=== PATIENT | female | born 1975 | race Caucasian/White ===

== ENCOUNTER 2020-09-01 17:47 | Emergency (ER) | payer OTHER, SELFPAY ==
--- NOTE | ~2020-09-01 | XR_ITS ---
XR chest 2V DATE: 09/01/2020 18:30 INDICATION: Shortness of breath, anxiety. Smoker. TECHNIQUE: AP and lateral views in wheelchair COMPARISON: None FINDINGS: Normal heart size. No hilar or mediastinal enlargement. There is minimal aortic unfolding. The lungs are mildly hyperinflated but clear of infiltrate or consolidation. No pleural effusion or p ulmonary vascular congestion or pneumothorax. Included skeletal structures are unremarkable. IMPRESSION: Mild bilateral hyperinflation; otherwise no active cardiac pulmonary disease Reviewed, dictated and finalized at location A. IMPRESSION: Mild bilateral hyperinflation; otherwise no active cardiac pulmonar y disease
--- NOTE | 2020-09-01 18:09 | ECG_ITS ---
Measurements Intervals [place] Rate: 82 P: 59 [place]: 118 QRS: 53 QRSD: 94 T: 141 QT: 397 QTc: 465 Interpretive Statements SINUS RHYTHM WITH SHORT [place] INTERVAL LEFT ATRIAL ENLARGEMENT ST-T WAVE ABNORMALITY IN ANTEROLATERAL LEADS- CONSIDER ISCHEMIA BASELINE ARTIFACT- I, V1-V2 ABNORMAL ECG Electronically Signed On 09-01-2020 19:39:31 CDT by Sabas Savage D.O.
[2020-09-01 18:10] VITALS: BP 192/96; PULSE 88; RESP 20; TEMP 36.4; O2SAT 100
[2020-09-01 18:24] LABS: Basophils Percent Auto 0.6 % (0.2-1.2); Eosinophils Absolute Auto 0.1 K/mm3 (0-0.3); Eosinophils Percent Auto 1.7 % (0-4.4); Hematocrit 48.3 % (37.0-47.0); Hemoglobin 16.9 g/dL (12.0-15.0); Immature Granulocyte Absolute 0.01 K/mm3 (0.00-0.031); Immature Granulocyte Percent A 0.2 % (0-0.5); Lymphocytes Absolute Auto 1.16 K/mm3 (0.9-3.2); Lymphocytes Percent Auto 24.2 % (18.3-44.2); Mean Corpuscular Hemoglobin 31.2 pg (26-34); Mean Corpuscular Volume 89.3 fl (80-100); Mean Platelet Volume 8.7 fl (7.4-10.4); Monocytes Absolute Auto 0.7 K/mm3 (0.1-0.6); Neutrophils Absolute Auto 2.8 K/mm3 (1.3-6.7); Neutrophils Percent Auto 58.3 % (45.5-73.1); Platelet Count Result 210 k/mm3 (150-375); Red Blood Count 5.41 M/mm3 (4.2-5.4); Red Cell Distribution Width 12.1 % (11.5-14.5); White Blood Count 4.8 K/mm3 (4.5-10.0)
[2020-09-01 18:33] LABS: Alanine Aminotransferase 35 U/L (4-35); Albumin Level 4.6 g/dL (3.5-5.1); Alkaline Phosphatase 172 U/L (38-126); Anion Gap 15 mmol/L (8-16); Aspartate Amino Transferase 70 U/L (14-36); Bilirubin,Total 0.7 mg/dL (0.2-1.3); Blood Urea Nitrogen 3 mg/dL (7-17); Calcium 9.8 mg/dL (8.4-10.2); Carbon Dioxide 21 mmol/L (22-30); Chloride 98 mmol/L (98-107); Estimated CRCL calculation 100 ml/min; Estimated Glomerular Filt Rate > 60; Ethanol 217 mg/dL (<10); Glucose 95 mg/dL (65-105); Potassium 3.5 mmol/L (3.4-5.0); Sodium 134 mmol/L (137-145)
--- NOTE | 2020-09-01 19:30 | PC.NURSE ---
pt to intake and verbalized feeling a ton better i am going to go home now.
== END 2020-09-01 19:30 | disposition left against medical advice (07) ==
LOC: ANHED 19:29
PROVIDERS: Emergency Provider Family Medicine
DX: R06.02 Shortness of breath (principal)
CPT/HCPCS: 36415; 71046; 80053; 80307; 85025; 93005; 99199

== ENCOUNTER 2020-09-16 17:58 | Inpatient (IN) | payer OTHER, SELFPAY ==
--- NOTE | ~2020-09-16 | XR_ITS ---
EXAMINATION: XR chest 1V portable EXAM DATE: 09/16/2020 19:01 INDICATION: Cough/SOB/ pressure @ center of chest x1 week. TECHNIQUE: Portable AP frontal chest x-ray was obtained. Comparison is made to prior examination from 09/01/2020. FINDINGS: The lungs are clear. There are no pleural effusions. The cardiomediastinal silhouette is within normal limits. There is no pneumothorax suspected. The bones and soft tissues are unremarkab le. IMPRESSION: No acute cardiopulmonary findings. Reviewed, dictated and finalized at location A.
--- NOTE | ~2020-09-16 | CT_ITS ---
EXAMINATION: CT abdomen pelvis wo con DATE: 09/17/2020 11:57 INDICATION: Mid and upper abdominal pain. TECHNIQUE: Computed tomography (CT) of the abdomen and pelvis was performed without intravenous contr ast. Automated exposure control and iterative reconstruction technique were employed. The dose-length product was 647.32 mGy-cm. COMPARISON: None FINDINGS: Lung bases are clear. Heart size is normal. No pericardial or pleural effusion. Diffuse hepatic steat osis. Cholecystectomy clips at the gallbladder fossa. Spleen, pancreas and bilateral adrenal glands a re normal. 4.4 x 2.7 x 4.1 cm gas and fluid-filled duodenal diverticulum located posterior to the hea d of the pancreas and which appears to arise from the second portion of the duodenum. Kidneys and ure ters are normal with no urolithiasis, hydroureteronephrosis or perinephric/ureteral stranding. Bladde r, uterus and bilateral adnexa are unremarkable. Single diverticulum along the sigmoid colon without adjacent inflammatory change to suggest diverticulitis. No bowel obstruction. Normal appendix. No edna e intraperitoneal gas or fluid. No pathologically enlarged abdominal or pelvic lymphadenopathy. Mild lumbar levocurvature with mild spondylosis. Chronic mild anterior wedging at T11 and T12. IMPRESSION: 1. No acute intra-abdominal/pelvic process. 2. Diffuse hepatic steatosis. Reviewed, dictated and finalized at location A.
--- NOTE | ~2020-09-16 | CT_ITS ---
EXAMINATION: CT brain wo con EXAM DATE: 09/16/2020 19:02 INDICATION: hypertensive emergency weakness/dizziness. High BP. TECHNIQUE: Spiral CT of the head was performed without contrast. Axial, coronal and sagittal images were reviewed. The dose-length product (DLP) for this examination was 681.00 mGy-cm. The exposure w as tailored according to patient size, and iterative reconstruction (ASIR) was used as additional dos e reduction technique. There is no prior study for comparison. FINDINGS: There is no acute intraparenchymal hemorrhage. No evidence of intraparenchymal brain mass lesion. No evidence of acute infarction. Please note that initial head CT has limited sensitivity f or small or acute infarctions. There are is mild to moderate periventricular and subcortical hypodens ity, a non-specific finding with differential diagnosis including premature chronic small vessel isch emic disease (especially if the patient has cardiovascular risk factors), migraine headaches, demyeli nating disease such as multiple sclerosis or acute disseminated encephalomyelitis (ADEM), vasculopath y, lyme's disease or reactive astrocytosis (gliosis) secondary to nonspecific etiology. There is mil d prominence of the sulci and ventricles related to cerebral atrophy. There is intracranial carotid arteriosclerosis. There are no extra-axial collections. There is no mass effect or midline shift. The orbits are unremarkable. Soft tissue is unremarkable. The visualized sinuses and mastoid air c ells are well aerated. IMPRESSION: 1. No acute intracranial findings. 2. Mild to moderate nonspecific white matter hypodensity, could be premature microangiopathy but meeta e differential considerations above. Reviewed, dictated and finalized at location A. IMPRESSION: 1. No acute intracranial findings. 2. Mild to moderate nonspecific white matter hypodensity, could be premature m icroangiopathy but some differential considerations above.
[2020-09-16 17:58] VITALS: BP 188/90; PULSE 88; RESP 18; TEMP 36.4; O2SAT 98
--- NOTE | 2020-09-16 18:16 | ECG_ITS ---
Measurements Intervals [place] Rate: 83 P: 72 [place]: 123 QRS: 66 QRSD: 93 T: 81 QT: 449 QTc: 529 Interpretive Statements SINUS RHYTHM POSSIBLE LEFT ATRIAL ENLARGEMENT LEFT VENTRICULAR HYPERTROPHY AND ST-T CHANGE BORDERLINE ST-T WAVE ABNORMALITY- HIGH LATERAL LEADS BASELINE ARTIFACT- I, V3, V5 BORDERLINE ECG Electronically Signed On 09-17-2020 6:17:50 CDT by Sabas Savage D.O.
[2020-09-16] MEDS: LABETALOL HCL INJ 100 MG/20 ML VIAL 10 MG IV PUSH ×2 (18:25→19:08)
[2020-09-16 18:39] LABS: Hematocrit 45.2 % (35.0-49.0); Hemoglobin 15.9 g/dL (12.0-15.0); Mean Corpuscular HGB Conc 35.2 g/dL (32.0-36.0); Mean Corpuscular Hemoglobin 31.5 pg (27.0-31.0); Mean Corpuscular Volume 89.5 fL (78.0-102.0); Mean Platelet Volume 9.2 fl (9.2-11.8); Platelet Count Result 161 K/mm3 (150-420); Red Blood Count 5.05 M/mm3 (4.20-5.40); Red Cell Distribution Width 11.9 % (11.6-14.4); White Blood Count 3.2 K/mm3 (4.8-10.8)
[2020-09-16 18:53] LABS: Partial Thromboplastin Time 30.3 SEC (23.90-30.70); Prothrombin Time 10.4 Seconds (9.50-12.10)
[2020-09-16] MEDS: PANTOPRAZOLE SODIUM IV 40 MG VIAL IV PUSH (19:00)
[2020-09-16 19:01] LABS: Alanine Aminotransferase 47 U/L (14-59); Albumin Level 3.1 g/dL (3.4-5.0); Alkaline Phosphatase 130 U/L (46-116); Anion Gap 17 mmol/L (8-16); Aspartate Amino Transferase 36 U/L (15-37); Band Neutrophils Percent 0 % (0-6); Basophils Absolute Manual 0.06 K/mm3 (0-0.1); Basophils Percent Manual 2 % (0-1); Bilirubin,Total 0.6 mg/dL (0.00-1.00); Blood Urea Nitrogen 4 mg/dL (7-18); Calcium 9.1 mg/dL (8.5-10.1); Carbon Dioxide 22 mmol/L (21-32); Chloride 100 mmol/L (98-108); Eosinophils Absolute Manual 0.06 K/mm3 (0.02-0.5); Eosinophils Percent Manual 2 % (1-6); Estimated Glomerular Filt Rate > 60; Ethanol 47 mg/dL (0-6); Glucose 97 mg/dL (70-99); Lipase 134 U/L (73-393); Lymphocytes Absolute Manual 0.64 K/mm3 (1.1-4.5); Lymphocytes Percent Manual 20 % (18-44); Monocytes Absolute Manual 0.44 K/mm3 (0.1-0.90); Monocytes Percent Manual 14 % (3-9); NT Pro B Type Natriuretic Pept 490 pg/mL (0-125); Neutrophils Absolute Manual 1.98 K/mm3 (1.7-7.2); Neutrophils Percent Manual 62 % (46-73); Osmolality Calculated 284 mOsm/kg (285-295); Platelet Estimate Adequate (Adequate); Potassium 3.6 mmol/L (3.5-5.1); Sodium 139 mmol/L (136-145); Total Protein 7.2 g/dL (6.4-8.2); Troponin I 12.3 ng/L (0.00-60.4)
[2020-09-16] MEDS: levoFLOXacin 500 MG/D5W 100 ML 500 MG/100 ML BAG 100 MG IVPB (19:10)
[2020-09-16 19:14] LABS: Add Urine Microscopic? YES; Appearance Urine Clear (Clear); Bilirubin Urine Negative (Negative); Blood Urine 3+ (Negative); Color Urine Light Yellow (Yellow); Glucose Urine UA Negative (Negative); Ketones Urine Negative (Negative); Leukocyte Esterase Ur Trace (Negative); Nitrate Urine Positive (Negative); Protein Urine Negative (Negative); Specific Grav Ur <= 1.005 (1.010-1.020); Urobilinogen Urine 0.2 mg/dL (0.2-1.0)
--- NOTE | 2020-09-16 19:15 | ED.ABDPAIN ---
HPI - Abdominal Pain General Chief Complaint: Abdominal Pain Stated Complaint: amb Source: patient Mode of arrival: EMS Limitations: no limitations History of Present Illness HPI narrative: this is a 44-year-old female history of alcohol abuse has been drinking throughout the day developed epigastric tenderness and pain with some elevated blood pressure of over 200 systolic EMS was called patient was brought in in route the patient receive 10 mg IV labetalol, patient was having some epigastric pain with no shortness of breath some nausea with no vomiting no dysuria no hematuria. Patient admits to heavy alcohol use and not taking medication for blood pressure. There was no headaches no neck pain no fever chills no blurry vision no slurred speech no neurological deficits. MD elicited complaint: abdominal pain Onset (ago): hour(s) Pain Consistency: intermittent Location: epigastric Severity: moderate Related Data Allergies Allergy/AdvReac Type Severity Reaction Status Date / Time Penicillins Allergy Intermediate Verified 03/04/18 09:56 Review of Systems Review of Systems: All systems reviewed & are unremarkable except as noted in HPI and below PMFSH Past Medical History Medical History Alcohol abuse HTN (hypertension) Social History Social History Smoking status: Current every day smoker Gender identity (if verbalized by the patient): Female Exam Const: General: healthy appearing and no acute distress Orientation/consciousness: patient oriented x3 Limitations: altered mental status HENMT: Head: normal to inspection Eyes: Conjunctivae: conjunctivae normal Pupils: Equal, round and reactive pupils present Neck: Neck: normal visual inspection and no lymphadenopathy Chest: Chest palpation & inspection: normal inspection of the chest Resp: Effort & Inspection: normal respiratory effort GI: GI Palp: Yes Soft to palpation Percussion: Yes normal to percussion Other: tender epigastric area with palpation : General: Yes no CVA tenderness Back/Spine/Pelvis: Back: no CVA tenderness Skin: General skin exam: normal color Rashes: no rashes Extrem: General: normal to inspection and no pedal edema Psych: Mental Status: mental status grossly normal Affect: normal affect Course Course Emergency Course: patient initially came in with blood pressure systolic over 200 currently after 20 mg of IV labetalol has come down to 188/ 90 and will administer another 10 mg IV labetalol, the patient with a heavy alcohol use with epigastric tenderness will give IV Protonix. Labs reviewed with patient along with a CT scan and chest x-ray. MDM - Abdominal Pain Lab Data Result diagrams: 09/16/20 18:34 09/16/20 18:34 Labs: Lab Results 09/16/20 09/16/20 09/16/20 Range/Units 18:16 18:34 18:34 WBC 3.2 L (4.8-10.8) K/mm3 RBC 5.05 (4.20-5.40) M/mm3 Hgb 15.9 H (12.0-15.0) g/dL Hct 45.2 (35.0-49.0) % MCV 89.5 (78.0-102.0) fL MCH 31.5 H (27.0-31.0) pg MCHC 35.2 (32.0-36.0) g/dL RDW 11.9 (11.6-14.4) % Plt Count 161 (150-420) K/mm3 MPV 9.2 (9.2-11.8) fl Immature Gran % (Auto) Not Reportable Neut % (Auto) Not Reportable Lymph % (Auto) Not Reportable [place] % (Auto) Not Reportable Eos % (Auto) Not Reportable Baso % (Auto) Not Reportable Lymph # (Auto) Not Reportable [place] # (Auto) Not Reportable Eos # (Auto) Not Reportable Baso # (Auto) Not Reportable Abs Immat Gran (auto) Not Reportable Absolute Neuts (auto) Not Reportable Absolute Nucleated RBC Not Reportable Neutrophils % (Manual) 62 (46-73) % Band Neutrophils % 0 (0-6) % Lymphocytes % (Manual) 20 (18-44) % Monocytes % (Manual) 14 H (3-9) % Eosinophils % (Manual) 2 (1-6) % Basophils % (Manual) 2
[2020-09-16 19:18] VITALS: BP 188/110; PULSE 90; RESP 18
[2020-09-16 19:20] LABS: Bacteria Urine 3+ /hpf; Squamous Epithelial Cell Urine Rare /hpf (Few); WBC Urine 0-3 /hpf (0-3)
[2020-09-16 19:21] LABS: Amphetamine Screen Urine Negative (Negative); Barbiturate Screen Urine Negative (Negative); Benzodiazepines Screen Urine Negative (Negative); Cannabinoid Screen Urine Negative (Negative); Cocaine Screen Urine Negative (Negative); Methadone Screen Urine Negative (Negative); Opiate Screen Urine Negative (Negative); Phencyclidine Screen Urine Negative (Negative)
[2020-09-16] MEDS: SODIUM CHLORIDE 0.9% IV 1,000 ML 999 ML IV CONT (19:34)
[2020-09-16 19:46] VITALS: BP 182/106; PULSE 90; RESP 16; O2SAT 97
[2020-09-16 20:35] VITALS: BP 190/100; PULSE 89; RESP 20; TEMP 36.4; O2SAT 97
--- NOTE | 2020-09-16 20:42 | PC.NURSE ---
Lactated ringers one liter given started by ambulance completed by abstract writer at 1814
[2020-09-16 20:57] VITALS: BMI 27.4
--- NOTE | 2020-09-16 20:59 | PC.NURSE ---
Patient admitted to room 206 per wheelchair, is alert and oriented, meds per orders, call light in reach.
[2020-09-16 21:22] VITALS: PULSE 91; RESP 18; O2SAT 98
[2020-09-16 21:38] VITALS: BMI 27.4
[2020-09-16 21:42] VITALS: PULSE 92
[2020-09-16] MEDS: METOPROLOL SUCCINATE EXT REL 50 MG TABCR PO (21:42)
[2020-09-16] MEDS: ENOXAPARIN 30 MG/0.3 ML SYRINGE SUB-Q (21:43)
[2020-09-16] MEDS: chlordiazePOXIDE (*CRX) 10 MG CAPSULE PO (21:43)
[2020-09-17] VITALS (16 sets, daily range): BP systolic 169–198; BP diastolic 10–114; PULSE 67–92; RESP 18–20; TEMP 36.3–37; O2SAT 96–98
--- NOTE | 2020-09-17 04:18 | PC.NURSE ---
Patients' BP 198/100. Doctor notified and new order received for labetol 10 mg IVP 1 time
[2020-09-17] MEDS: LABETALOL HCL INJ 100 MG/20 ML VIAL 10 MG IV PUSH (04:35)
[2020-09-17] MEDS: chlordiazePOXIDE (*CRX) 10 MG CAPSULE PO ×2 (05:14→12:36)
[2020-09-17 05:27] LABS: Hematocrit 46.6 % (35.0-49.0); Hemoglobin 16.2 g/dL (12.0-15.0); Mean Corpuscular HGB Conc 34.8 g/dL (32.0-36.0); Mean Corpuscular Hemoglobin 31.5 pg (27.0-31.0); Mean Corpuscular Volume 90.5 fL (78.0-102.0); Mean Platelet Volume 9.3 fl (9.2-11.8); Platelet Count Result 147 K/mm3 (150-420); Red Blood Count 5.15 M/mm3 (4.20-5.40); Red Cell Distribution Width 11.9 % (11.6-14.4)
[2020-09-17 05:42] LABS: Alanine Aminotransferase 44 U/L (14-59); Albumin Level 2.8 g/dL (3.4-5.0); Alkaline Phosphatase 123 U/L (46-116); Anion Gap 11 mmol/L (8-16); Aspartate Amino Transferase 40 U/L (15-37); Blood Urea Nitrogen 6 mg/dL (7-18); Calcium 8.2 mg/dL (8.5-10.1); Carbon Dioxide 28 mmol/L (21-32); Chloride 99 mmol/L (98-108); Estimated CRCL calculation 84 ml/min; Estimated Glomerular Filt Rate > 60; Glucose 109 mg/dL (70-99); Magnesium 1.9 mg/dL (1.8-2.4); Osmolality Calculated 284 mOsm/kg (285-295); Potassium 3.8 mmol/L (3.5-5.1); Sodium 138 mmol/L (136-145); Total Protein 6.7 g/dL (6.4-8.2)
[2020-09-17 05:45] LABS: Band Neutrophils Percent 0 % (0-6); Basophils Absolute Manual 0.04 K/mm3 (0-0.1); Basophils Percent Manual 1 % (0-1); Eosinophils Absolute Manual 0.04 K/mm3 (0.02-0.5); Eosinophils Percent Manual 1 % (1-6); Lymphocytes Absolute Manual 0.76 K/mm3 (1.1-4.5); Lymphocytes Percent Manual 19 % (18-44); Monocytes Absolute Manual 0.64 K/mm3 (0.1-0.90); Monocytes Percent Manual 16 % (3-9); Neutrophils Absolute Manual 2.52 K/mm3 (1.7-7.2); Neutrophils Percent Manual 63 % (46-73); Platelet Estimate Adequate (Adequate)
--- NOTE | 2020-09-17 07:05 | PC.NURSE ---
Bedside report completed with night nurse. Patient sleeping.
[2020-09-17] MEDS: carvediloL 12.5 MG TABLET 37.5 MG PO (08:37)
[2020-09-17] MEDS: ENOXAPARIN 30 MG/0.3 ML SYRINGE SUB-Q (08:40)
--- NOTE | 2020-09-17 08:44 | PM.SD2 ---
Same Day Admit/Disch: HPI History of Present Illness Chief complaint: HYPERTENSIVE URGENCY Narrative: This is a H&P Dayana Portillo is a 44 year old female that presented to our ED with complaints of abdominal pain , dry heaving ,dizziness lower extremity weakness. Patient has a history of hypertension noncompliant and alcohol abuse. According to patient for the last couple of months she has been feeling bad . She notes that she has been experiencing epigastric pain with dry heaving dizziness and lower extremity weakness. Patient notes that her lower extremities felt as if they were going to give out. Patient notes that she does drink over a sixpack of beer daily and has done so for approximately 1 year. She does note that she considers herself in alcohol. Patient also noted that she knew her blood pressure was elevated from her signs and symptoms. She also admits that she does not take her blood pressure medication as directed and have not for years. Patient continues to have epigastric tenderness but it has improved she notes that she is no longer dry heaves. Patient blood pressure 193/114, 85, 18, 97.3, 98% on room air WBCs 4.0, hemoglobin 16.2, hematocrit 46.6, platelets 147, sodium 138, potassium 3.8, BUN 6, creatinine 0.70, glucose 109, potassium 1.9, AST 40, ALT 44, troponin 12.3, lipase 134, UA shows nitrate leukocyte Estrace bacteria, alcohol level 47. Patient was admitted for hypertensive urgency and urinary tract infection. The patient denies SOB, CP, palpitation, extremity numbness, lightheadedness, dizziness, constipation, diarrhea, chills, or fever. Patient will remain an additional day to her blood pressure is better controlled Patient inpatient Time spent 60-minute Disposition Home with self-care referral to counseling and rehab [facility] Past Medical History Medical History Alcohol abuse HTN (hypertension) Social History Social History Smoking status: Current every day smoker Tobacco type: cigarettes Second hand tobacco smoke exposure: Yes Alcohol intake: current Substance use: unknown Gender identity (if verbalized by the patient): Female Spiritual care concerns: No Same Day Admit/Disch: Med Pre-admit Medications Home Medications Medication Instructions Recorded Confirmed Type No Home Medications 09/16/20 09/16/20 History Exam Narrative: Exam Narrative: GENERAL: This is a well-nourished, well-developed patient, in no apparent distress. HEAD: normocephalic, atraumatic. EYES: PERRL. Sclera clear/white. Vision is grossly intact. EARS: External ears normal, auditory canals clear and without drainage, TMs normal without perforation. Hearing grossly intact. NOSE: External nose normal with no obvious nasal discharge, nares without redness, no rhinorrhea. THROAT: Mucous membranes moist, posterior pharynx clear. NECK: Neck supple, non-tender without lymphadenopathy, masses or thyromegaly. CARDIOVASCULAR: Regular rate and rhythm without murmurs, gallops, or rubs. RESPIRATORY: Clear to auscultation. Breath sounds equal bilaterally. No wheezes, rales, or rhonchi. GASTROINTESTINAL: Abdomen soft, epigastric tenderness, nondistended. Bowel sounds are active. No hepato-splenomegaly, or palpable masses. No guarding. SKIN: warm, intact with no suspicious lesions or rash, good texture and turgor. NEURO: awake, alert, and oriented to person, place and time. There were no obvious focal neurologic abnormalities. Steady gait EXTREMITIES: Normal range of motion. No edema. No calf tenderness. Negative Homans sign bilaterally. BACK: Nontender without deformity or crepitance. No flank tenderness. DS: Data Data Completed and Pending Labs on day of discharge: Labs from last 24 hours 09/17/20 09/17/20 09/16/20 05:22 05:22 19:07 WBC 4.0 L RBC 5.15 Hgb 16.2 H Hct 46.6 MCV 90.5 MCH 31.5
[2020-09-17] MEDS: NICOTINE (*PBKC) 21 MG PATCH 1 PATCH TRANSDERM (09:04)
[2020-09-17 09:59] LABS: Pregnancy On Board Control Positive; Urine Pregnancy Test Negative
--- NOTE | 2020-09-17 11:40 | PC.NURSE ---
pt taken by wheelchair to xray
--- NOTE | 2020-09-17 11:50 | PC.NURSE ---
pt returned from CT, assisted to bathroom, given clean brief and pad, pt c/o dizziness and would like medication as soon as it is available
[2020-09-17] MEDS: lisinopriL 20 MG TABLET 40 MG PO (15:25)
[2020-09-17] MEDS: carvediloL 12.5 MG TABLET 25 MG PO (15:25)
--- NOTE | 2020-09-17 17:30 | PC.NURSE ---
Dr Diallo notified of pt's blood pressure, no new orders at this time
--- NOTE | 2020-09-17 17:40 | PC.NURSE ---
pt c/o dizziness, doctor notified, no new orders given
--- NOTE | 2020-09-17 18:10 | PC.NURSE ---
pt c/o headache on left side behind ear and left eye, doctor called, orders received
[2020-09-17] MEDS: KETOROLAC 30 MG/ML VIAL (*BKC) IV PUSH (18:34)
[2020-09-17] MEDS: PROCHLORPERAZINE EDISYLATE 10 MG/2 ML VIAL 5 MG IV PUSH (18:34)
[2020-09-17] MEDS: carvediloL 12.5 MG TABLET 50 MG PO (20:17)
--- NOTE | 2020-09-17 20:17 | PC.NURSE ---
spoke with dr johnson about bp of 191/112, physician orders to give sched. coreg and continue to monitor, pt reports headache is gone at this time
[2020-09-17] MEDS: levoFLOXacin 500 MG/D5W 100 ML 500 MG/100 ML BAG 100 MG IVPB (20:18)
--- NOTE | 2020-09-17 22:10 | PC.NURSE ---
Cooling Pipe Inspector rechecked patient's BP per MD request and 189/99 HR 68. Denies any headache. Neuros WNL. CIWA score 2. shop estimator notified.
[2020-09-18] VITALS (7 sets, daily range): BP systolic 159–224; BP diastolic 75–112; PULSE 64–81; RESP 18; TEMP 36.4–36.7; O2SAT 97–98
--- NOTE | 2020-09-18 00:20 | PC.NURSE ---
Dr. Diallo notified of pt's current blood pressure of 199/103 and her c/o dizziness and headache. He said we could give toredol to relieve pt's headache.
[2020-09-18] MEDS: KETOROLAC 30 MG/ML VIAL (*BKC) IV PUSH (00:21)
[2020-09-18] MEDS: chlordiazePOXIDE (*CRX) 10 MG CAPSULE PO ×2 (00:21→05:29)
--- NOTE | 2020-09-18 05:06 | PC.NURSE ---
Dr. Diallo notified of pt's elevated blood pressure of 224/106; Orders received and noted.
[2020-09-18 05:11] LABS: Hematocrit 44.5 % (35.0-49.0); Hemoglobin 15.2 g/dL (12.0-15.0); Mean Corpuscular HGB Conc 34.2 g/dL (32.0-36.0); Mean Corpuscular Hemoglobin 31.3 pg (27.0-31.0); Mean Corpuscular Volume 91.6 fL (78.0-102.0); Mean Platelet Volume 9.6 fl (9.2-11.8); Platelet Count Result 136 K/mm3 (150-420); Red Blood Count 4.86 M/mm3 (4.20-5.40); Red Cell Distribution Width 11.7 % (11.6-14.4); White Blood Count 3.3 K/mm3 (4.8-10.8)
[2020-09-18 05:24] LABS: Anion Gap 12 mmol/L (8-16); Blood Urea Nitrogen 9 mg/dL (7-18); Calcium 8.4 mg/dL (8.5-10.1); Carbon Dioxide 27 mmol/L (21-32); Chloride 100 mmol/L (98-108); Estimated CRCL calculation 94 ml/min; Estimated Glomerular Filt Rate > 60; Glucose 99 mg/dL (70-99); Osmolality Calculated 286 mOsm/kg (285-295); Potassium 3.4 mmol/L (3.5-5.1); Sodium 139 mmol/L (136-145)
--- NOTE | 2020-09-18 06:40 | PC.NURSE ---
Dr. Diallo notified of pt's blood pressure of 214/101. He said he would come up to see the patient.
--- NOTE | 2020-09-18 06:56 | PC.NURSE ---
Dr. Diallo here to see the patient.
--- NOTE | 2020-09-18 08:20 | WPDPN ---
Progress Note: A&P Assessment and Plan (1) Hypertensive urgency: Code(s): I16.0 - Hypertensive urgency Status: Acute Assessment and Plan: 1 admission blood pressure 210/120>192/96>188/90>188/110>182/106>190/100>183>95,194>87>193/114>186/102>180/100>169/107>190/107>169/88>191/112>189/99>199/103>224/106 Patient was given a total of 20 mg of labetalol Noncompliant with home medication Patient started on carvedilol 37.5 mg every 12 hours, changed to 50 mg every 12 hours also lisinopril 40 mg daily was added during the night. Continue telemetry Troponin within normal limits EKG sinus rhythm with the LVH (2) Alcohol abuse: Code(s): F10.10 - Alcohol abuse, uncomplicated Status: Acute Assessment and Plan: History of alcoholism Drink over a sixpack of beer daily EtOH level 47 Patient given information on support groups and encouraged cessation (3) HTN (hypertension): Code(s): I10 - Essential (primary) hypertension Status: Acute Assessment and Plan: Patient noncompliant with blood pressure medication started on carvedilol 37.5 mg every 12 hours, changed to 50 mg every 12 hours also lisinopril 40 mg daily was added during the night. Report for to hypertension urgency (4) UTI (urinary tract infection): Code(s): N39.0 - Urinary tract infection, site not specified Status: Acute Assessment and Plan: UA indicated leukocyte Estrace, bacteria, nitrates patient currently on Levaquin (5) Epigastric pain: Code(s): R10.13 - Epigastric pain Status: Acute Assessment and Plan: Possibly secondary to dry heaving versus alcohol abuse CT of the abdomen and pelvis indicate no acute intra-abdominal/pelvic process. Diffuse hepatic steatosis. Subjective Date/time seen: 09/18/20 08:20 patient did note that overnight her blood pressure elevated and she started to experience a headache, dizziness and some nausea. Currently she is not having any of the symptoms repeat blood pressure pending. She is anxious to discharge home explained to patient that we would have to lower her blood pressure at least in the 160/80. Patient agrees to stay she does complain of a left shoulder pain ordered a lidocaine patch for her left shoulder. The patient denies SOB, CP, palpitation, extremity numbness, lightheadedness, constipation, diarrhea, chills, or fever. Review of Systems Review of Systems: Narrative: A 14 organ system Review of Systems was performed and pertinent positives included in the HPI, otherwise remaining ROS is negative. Exam Narrative: Exam Narrative: GENERAL: This is a well-nourished, well-developed patient, in no apparent distress. HEAD: normocephalic, atraumatic. EYES: PERRL. Sclera clear/white. Vision is grossly intact. EARS: External ears normal, auditory canals clear and without drainage, TMs normal without perforation. Hearing grossly intact. NOSE: External nose normal with no obvious nasal discharge, nares without redness, no rhinorrhea. THROAT: Mucous membranes moist, posterior pharynx clear. NECK: Neck supple, non-tender without lymphadenopathy, masses or thyromegaly. CARDIOVASCULAR: Regular rate and rhythm without murmurs, gallops, or rubs. RESPIRATORY: Clear to auscultation. Breath sounds equal bilaterally. No wheezes, rales, or rhonchi. GASTROINTESTINAL: Abdomen soft, epigastric tenderness, nondistended. Bowel sounds are active. No hepato-splenomegaly, or palpable masses. No guarding. SKIN: warm, intact with no suspicious lesions or rash, good texture and turgor. NEURO: awake, alert, and oriented to person, place and time. There were no obvious focal neurologic abnormalities. Steady gait EXTREMITIES: Normal range of motion. No edema. No calf tenderness. Negative Homans sign bilaterally. BACK: Nontender without deformity or crepitance. No flank tenderness. Objective Data Vital Signs Vital Signs: Vital Signs - 24 hr 09/17/20 10:15
[2020-09-18] MEDS: ENOXAPARIN 40 MG/0.4 ML SYRINGE SUB-Q (08:37)
[2020-09-18] MEDS: NICOTINE (*PBKC) 21 MG PATCH 1 PATCH TRANSDERM (08:37)
[2020-09-18] MEDS: LIDOCAINE 5% PATCH 1 PATCH TRANSDERM (08:37)
[2020-09-18] MEDS: carvediloL 12.5 MG TABLET 50 MG PO (08:38)
[2020-09-18] MEDS: hydroCHLOROthiazide 12.5 MG CAPSULE PO (08:38)
[2020-09-18] MEDS: lisinopriL 20 MG TABLET 40 MG PO (08:38)
[2020-09-18] MEDS: hydrALAZINE HCL 20 MG/ML VIAL 10 MG IV PUSH (08:39)
--- NOTE | 2020-09-18 12:20 | PC.NURSE ---
pt wants to leave AMA, form signed and risks explained by myself and Odalys HARBOR MASTER, pt verbalized understanding and still desires to leave, iv site removed with catheter intact, monitoring engineer removed
[2020-09-18] MEDS: chlordiazePOXIDE (*CRX) 25 MG CAPSULE PO (12:21)
--- NOTE | 2020-09-18 12:47 | PM.DS ---
DS: Admitting Diagnosis Admitting Diagnosis Admitting Diagnosis: Hypertension urgency/urinary tract infection DS: Discharge Diagnosis Discharge Diagnosis (1) Hypertensive urgency: Code(s): I16.0 - Hypertensive urgency Status: Acute Assessment and Plan: 1 admission blood pressure 210/120>192/96>188/90>188/110>182/106>190/100>183>95,194>87>193/114>186/102>180/100>169/107>190/107>169/88>191/112>189/99>199/103>224/106>210/107>159/75>194/112 Patient was given a total of 20 mg of labetalol/ Noncompliant with home medication Patient started on carvedilol 37.5 mg every 12 hours, changed to 50 mg every 12 hours also lisinopril 40 mg daily was added during the night. Continue telemetry Troponin within normal limits EKG sinus rhythm with the LVH (2) Alcohol abuse: Code(s): F10.10 - Alcohol abuse, uncomplicated Status: Acute Assessment and Plan: History of alcoholism Drink over a sixpack of beer daily EtOH level 47 Patient given information on support groups and encouraged cessation (3) HTN (hypertension): Code(s): I10 - Essential (primary) hypertension Status: Acute Assessment and Plan: Patient noncompliant with blood pressure medication started on carvedilol 37.5 mg every 12 hours, changed to 50 mg every 12 hours also lisinopril 40 mg daily was added during the night. Report for to hypertension urgency (4) UTI (urinary tract infection): Code(s): N39.0 - Urinary tract infection, site not specified Status: Acute Assessment and Plan: UA indicated leukocyte Estrace, bacteria, nitrates patient currently on Levaquin (5) Epigastric pain: Code(s): R10.13 - Epigastric pain Status: Acute Assessment and Plan: Possibly secondary to dry heaving versus alcohol abuse CT of the abdomen and pelvis indicate no acute intra-abdominal/pelvic process. Diffuse hepatic steatosis. DS: Summary Hospital Course Hospital Course: Dayana Portillo is a 44 year old female that presented to our ED with complaints of abdominal pain , dry heaving ,dizziness lower extremity weakness. Patient has a history of hypertension noncompliant and alcohol abuse. According to patient for the last couple of months she has been feeling bad . She notes that she has been experiencing epigastric pain with dry heaving dizziness and lower extremity weakness. Patient notes that her lower extremities felt as if they were going to give out. Patient notes that she does drink over a sixpack of beer daily and has done so for approximately 1 year. She does note that she considers herself in alcohol. Patient also noted that she knew her blood pressure was elevated from her signs and symptoms. She also admits that she does not take her blood pressure medication as directed and have not for years. Patient is currently being treated for her hypertension crisis this day patient received carvedilol, hydroxyzine, lisinopril, and hydrochlorothiazide and her blood pressure remained labile. Patient has made the decision to leave AMA today. I have explained to her that uncontrolled hypertension can lead to heart attack and stroke I also educated the patient on the signs and symptoms of a heart attack and stroke. Inform her that she will need to follow-up with primary care physician on Sunday. At some point she will also need to follow-up with a watch crystal molder. Patient understands and still chooses to leave AMA. I will E scribe her prescriptions to her pharmacy. the patient denies SOB, CP, palpitation, extremity numbness, lightheadedness, dizziness, constipation, diarrhea, chills, or fever. Disposition patient is leaving AMA 194/112 Time Spent with Patient Time attestation: Total time spent providing and/or coordinating discharge services:160 Exam Narrative: Exam Narrative: GENERAL: This is a well-nourished, well-developed patient, in no apparent distress. HEAD: normocephalic, atraumatic. EYES: PERRL. Sc
--- NOTE | 2020-09-18 12:55 | PC.NURSE ---
pt left building via wheelchair to private vehicle, pt again verbalized understanding of importance to stay and control blood pressure, pt refused to stay, reports will fish bait picker prescriptions and take according to directions
--- NOTE | 2020-09-27 11:32 | PC.NURSE ---
Unable to contact for discharge call back.
== END 2020-09-18 12:55 | disposition left against medical advice (07) | DRG 199 ==
LOC: CHSED 19:20 → CHS2ND 19:41
PROVIDERS: Nurse Practitioner; Admitting Provider Emergency Medicine; Emergency Provider Emergency Medicine; Visit Provider Emergency Medicine
DX: I16.0 Hypertensive urgency (principal); N39.0 Urinary tract infection, site not specified; R10.13 Epigastric pain; I10 Essential (primary) hypertension; F10.10 Alcohol abuse, uncomplicated; F17.210 Nicotine dependence, cigarettes, uncomplicated
CPT/HCPCS: 36415; 70450; 71045; 74176; 80048; 80053; 80307; 81001; 81025; 83690; 83735; 83880; 84484; 85025; 85027; 85610; 85730; 93005; 96374; 96375; 96376; 99285; A9270; C9113; J0360; J0780; J1650; J1885; J1956; J7030

== ENCOUNTER 2020-09-29 19:33 | Emergency (ER) | payer OTHER, SELFPAY ==
[2020-09-29 20:08] VITALS: BP 133/85; PULSE 71; RESP 20; TEMP 36.9; O2SAT 100
--- NOTE | 2020-09-29 20:16 | ED.GENADULT ---
HPI - General Adult General Chief complaint: Unspecified Stated complaint: R arm numb, dizzy Source: patient Mode of arrival: ambulatory Limitations: no limitations History of Present Illness HPI narrative: Dayana is a 44F with a PMH of dysequilibrium, tobacco use, HTN and alcohol use that presented to the ED because whe had some numbness in her left arm. About 30 minutes before arrival she had numbness on the lateral side of her right arm for several minutes and was concerned it could be a CVA. There was no other reported symptoms but she was concerned so she came to the ED. Related Data Home Medications Medication Instructions Recorded Confirmed hydrochlorothiazide 12.5 mg PO DAILY 09/29/20 09/29/20 potassium chloride [Klor-Con M20] 20 meq PO DAILY 09/29/20 09/29/20 Allergies Allergy/AdvReac Type Severity Reaction Status Date / Time Penicillins Allergy Intermediate Unknown Verified 09/29/20 20:15 Review of Systems Constitutional: Constitutional: Reports no additional constitutional complaints Eyes: Eyes: Reports no additional eye complaints ENT: Reports system reviewed and no additional complaints, except as documented Cardiovascular: Cardiovascular: Reports no additional cardiovascular complaints Respiratory: Respiratory: Reports no additional respiratory complaints Gastrointestinal: Gastrointestinal: Reports no additional gastrointestinal complaints Genitourinary: Genitourinary: Reports no additional female genitourinary complaints Musculoskeletal: Musculoskeletal: Reports no additional musculoskeletal complaints Integumentary/Breasts: Skin/Breast: Reports system reviewed and no additional complaints, except as docu Neurologic: Reports as per HPI Psychiatric: Psychiatric: Reports no additional psychiatric complaints [facility] Past Medical History Medical History Alcohol abuse HTN (hypertension) Surgical History Surgical History History of cholecystectomy Age 22 Social History Social History Smoking status: Current every day smoker Tobacco type: cigarettes Second hand tobacco smoke exposure: Yes Alcohol intake: current Substance use: unknown Gender identity (if verbalized by the patient): Female Spiritual care concerns: No Exam Const: General: cooperative, healthy appearing, comfortable and no acute distress HENMT: Head: normal to inspection, normocephalic and atraumatic Eyes: General: appearance normal, both eyes and all related structures Neck: Neck: normal visual inspection Chest: Chest palpation & inspection: normal inspection of the chest Resp: Effort & Inspection: normal respiratory effort and able to speak in complete sentences Auscultation: clear to auscultation bilaterally Cardio: Rate: regular rate Rhythm: regular rhythm Skin: General skin exam: normal color and no rashes or lesions noted Neuro: General: oriented to person, oriented to place, oriented to time, patient oriented x3, gait normal, tone normal, moves all extremities, Normal light touch and pain sensation, no focal motor deficits, CN's II-XI intact bilaterally and normal sensation to monofilament Speech: normal speech Gait exam (Neuro): Normal gait present Motor exam (neuro): 5/5 motor strength present throughout and Pronator motor function not present Sensory Exam: normal sensation Extrem: General: normal to inspection Psych: Appearance: grossly normal and well kempt Mental Status: mental status grossly normal Speech and movement: Normal speech and movement present Affect: normal affect Attitude: cooperative Thought process: Normal thought process present Thought content: Yes Normal thought content present Course Course Emergency Course: Physical exam was completely normal by the time she arrived. She was still concerned abou
[2020-09-29 20:42] VITALS: BP 140/95; PULSE 73; RESP 20; O2SAT 100
== END 2020-09-29 20:44 | disposition home or self-care (01) ==
PROVIDERS: Emergency Provider Family Medicine; PCP Family Medicine
DX: R20.0 Anesthesia of skin (principal)
CPT/HCPCS: 99283

== ENCOUNTER 2020-10-08 08:41 | Outpatient (CLI) | payer OTHER, SELFPAY ==
--- NOTE | ~2020-10-08 | US_ITS ---
EXAMINATION: US retroperitoneal duplex ltd EXAM DATE: 10/08/2020 09:48 INDICATION: I16.0 - Hypertensive urgency. TECHNIQUE: Multiple grayscale and Doppler images of the kidneys and renal arteries were obtained. T here is no prior study for comparison. FINDINGS: The aorta peak systolic velocity is 75 cm/s. Renal arteries interrogated in several segments from origin to hilum. RIGHT RENAL ARTERY Proximal segment (origin): 120 cm/s. Middle segment: 118 cm/s. Distal segment (hilum): 96 cm/s. LEFT RENAL ARTERY Proximal segment (origin): 177 cm/s. Middle segment: 153 cm/s. Distal segment (hilum): 133 cm/s. IMPRESSION: 1. Renal artery Doppler velocities within normal limits. Reviewed, dictated and finalized at location A.
== END 2020-10-08 08:42 | disposition home or self-care (01) ==
LOC: CHSIMG 08:42
PROVIDERS: PCP Family Medicine; Visit Provider Family Medicine
DX: I16.0 Hypertensive urgency (principal)
CPT/HCPCS: 93976

== ENCOUNTER 2020-10-09 09:56 | Outpatient (CLI) | payer OTHER, SELFPAY ==
--- NOTE | ~2020-10-09 | MR_ITS ---
EXAMINATION: MR brain/brain stem wo con EXAM DATE: 10/09/2020 10:39 INDICATION: R42 - Dizziness and giddiness . Trouble walking. Hypertension. Hypertensive emergency on 09/16/2020. TECHNIQUE: Magnetic resonance imaging (MRI) of the brain/brain stem obtained without contrast. Sagitt al T1, axial diffusion, gradient echo (T2*), T1, T2, FLAIR sequences obtained. Correlation is made t o head CT 09/16/2020. FINDINGS: There is moderate amount of scattered periventricular and subcortical T2/FLAIR hyperintensi ties with frontal lobe predominant, a non-specific finding with differential diagnosis including alan ature chronic small vessel ischemic disease (especially if the patient has cardiovascular risk factor s), migraine headaches, demyelinating disease such as multiple sclerosis or acute disseminated enceph alomyelitis (ADEM), vasculopathy, lyme's disease or reactive astrocytosis (gliosis) secondary to nons pecific etiology. There are no areas of restricted diffusion to suggest acute infarction. There is no acute hemorrhage seen on the T2*, a hemosiderin sensitive sequence. No intraparenchymal brain mass. The ventricles a re normal in size. There are no extra-axial collections. Flow voids are seen in the cerebral arteri es on the T2-weighted sequences consistent with their expected patency. The orbits are unremarkable. Soft tissue is unremarkable. IMPRESSION: Moderate amount of nonspecific frontal lobe predominant white matter signal abnormality. Could be premature microangiopathy given patient's hypertension. Some other differential considerati ons above. Reviewed, dictated and finalized at location A. IMPRESSION: Moderate amount of nonspecific frontal lobe predominant white matte r signal abnormality. Could be premature microangiopathy given patient's hyper tension. Some other differential considerations above.
== END 2020-10-09 09:57 | disposition home or self-care (01) ==
LOC: CHSIMG 09:58
PROVIDERS: PCP Family Medicine; Visit Provider Family Medicine
DX: R42 Dizziness and giddiness (principal)
CPT/HCPCS: 70551

== ENCOUNTER 2020-10-26 13:09 | Emergency (ER) | payer OTHER, SELFPAY ==
--- NOTE | ~2020-10-26 | CT_ITS ---
EXAMINATION: CTA BRAIN/CAROTID DATE: 10/26/2020 20:16 INDICATION: Occipital headache and vertigo. TECHNIQUE: Computed tomographic angiography (CTA) of the head and neck was performed with 100 mL Omni paque-350 intravenous contrast. Multiplanar reconstructions and maximum intensity projection 3D-recon structions of the carotid arteries and of the intracranial arteries were created by the technologist on a separate workstation. Automated exposure control and iterative reconstruction technique were emp loyed.The dose-length product was 648.49 mGy-cm. COMPARISON: None. FINDINGS: Carotid arteries: Aortic arch is normal in caliber with minimal atherosclerotic calcification and no dissection. Mild a therosclerotic plaque at the right carotid bulb with 0% stenosis of the right carotid bulb relative t o normal distal artery lumen diameter (NASCET criteria). Similar there is mild atherosclerotic plaque also with 0% stenosis of the left carotid bulb relative to normal distal artery lumen diameter. Ther e is 30% stenosis at the origin of the right subclavian artery. The left vertebral artery is dominant . Cervical soft tissues are unremarkable. Visualized airway and apices of lungs are clear. Reversal o f the normal cervical lordosis with mild spondylosis. Intracranial arteries The diminutive right vertebral artery terminates at the right posterior inferior cerebellar artery wi th no evident contribution to the basilar artery which is supplied exclusively by the dominant left v ertebral artery. The left posterior inferior cerebellar artery occludes within 1 cm of its origin fro m the left vertebral artery. There is asymmetric absence of enhancing vessels within the hypodense in farcted medial left cerebellar hemisphere. Small amount of calcified plaque resulting in 60% stenosis at the proximal cavernous portion of the intracranial right internal carotid artery. There is no oth er hemodynamically significant stenosis in the vertebral, basilar and internal carotid arteries. Vert ebral arteries are codominant. There are no aneurysms identified. The left A1 and P1 segments are pat ent. The right anterior cerebral artery supplied via the left A1 segment and a patent anterior commun icating artery. The right posterior cerebral artery supplied via the right internal carotid artery an d a patent right posterior commuting artery. Cerebral arterial arborization appears symmetric. IMPRESSION: 1. 0% stenosis of the right carotid bulb relative to normal distal artery lumen diameter (NASCET crit eria). 2. 0% stenosis of the left carotid bulb relative to normal distal artery lumen diameter. 3. 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 4. Normal variant cerebral arterial anatomy as detailed above. 5. 6% stenosis at the cavernous portion of the intracranial right internal carotid artery. Reviewed, dictated and finalized at location A. IMPRESSION: 1. 0% stenosis of the right carotid bulb relative to normal distal artery lumen diameter (NASCET criteria). 2. 0% stenosis of the left carotid bulb relative to normal distal artery lumen diameter. 3. 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 4. Normal variant cerebral arterial anatomy as detailed above. 5. 6% stenosis at the cavernous portion of the intracranial right internal calle tid artery.
--- NOTE | ~2020-10-26 | CT_ITS ---
EXAMINATION: CT brain wo con DATE: 10/26/2020 17:59 INDICATION: Headache, dizziness, nausea and vomiting. TECHNIQUE: Computed tomography (CT) of the head was performed without intravenous contrast. Sagittal and coronal reconstructions were performed. The mA was adjusted according to patient size. Iterative reconstruction technique was employed. The dose-length product was 592.16 mGy-cm. COMPARISON: head CT dated 09/16/20 and brain MR dated 10/09/2020 FINDINGS: New region of decreased attenuation involving the medial aspect of the left cerebellar hemisphere con sistent with acute to subacute infarct which is new since 10/09/2020. There is effacement of the CSF s paces along the periphery of the left cerebellar hemisphere. No acute intracranial hemorrhage or abno rmal extra axial fluid collection. There is mild to moderate scattered white matter hypoattenuation w ith bilateral frontal lobe predominance. Ventricles are normal and symmetric. No mass/mass effect. I ntracranial calcified cerebral atherosclerosis is noted. The orbits, paranasal sinuses and mastoid ai r cells are normal. IMPRESSION: 1. Acute to subacute infarct in the medial left cerebellar hemisphere in the posterior inferior cereb ellar artery vascular distribution which is new since 10/09/2020. 2. Mild to moderate nonspecific white matter hypoattenuation. The differential diagnosis includes pre mature chronic small vessel ischemic disease (especially if the patient has cardiovascular risk facto rs), demyelinating disease such as multiple sclerosis or acute disseminated encephalomyelitis (ADEM), CADASIL, drug abuse, vasculitis, or reactive astrocytosis (gliosis) secondary to nonspecific etiolog y. Reviewed, dictated and finalized at location A. IMPRESSION: 1. Acute to subacute infarct in the medial left cerebellar hemisphere in the po sterior inferior cerebellar artery vascular distribution which is new since 09/17. 2. Mild to moderate nonspecific white matter hypoattenuation. The differential diagnosis includes premature chronic small vessel ischemic disease (especially if the patient has cardiovascular risk factors), demyelinating disease such as multiple sclerosis or acute disseminated encephalomyelitis (ADEM), CADASIL, isaias g abuse, vasculitis, or reactive astrocytosis (gliosis) secondary to nonspecifi c etiology.
--- NOTE | ~2020-10-26 | CT_ITS ---
EXAMINATION: CT abdomen pelvis w con DATE: 10/26/2020 17:58 INDICATION: Abdominal pain TECHNIQUE: Computed tomography (CT) of the abdomen and pelvis was performed with 100 mL Omnipaque-350 intravenous contrast. Automated exposure control and iterative reconstruction technique were employe d. The dose-length product was 592.16 mGy-cm. COMPARISON: 09/17/2020 FINDINGS: Lung bases are clear. Heart size is normal. No pericardial or pleural effusion. There is edematous-ap pearing wall thickening at the gastric antrum suspicious for gastritis or peptic ulcer disease but wi thout discrete ulcer or surrounding inflammatory stranding. Cholecystectomy clips at the gallbladder fossa. Liver, spleen, pancreas, bilateral adrenal glands and kidneys are normal. Partially collapsed duodenal diverticulum again seen posterior to the head of the pancreas. Bowels including the appendix are normal. Tiny fat-containing umbilical hernia. Bladder, uterus and bilateral adnexa are unremarka ble. Small amount of likely physiologic free fluid in the cul-de-sac. No pathologically enlarged abdo jackie or pelvic lymphadenopathy. Mild lumbar levocurvature. Chronic mild anterior wedging at T11 and T12. IMPRESSION: 1. Wall thickening at the gastric antrum which could be related to gastritis either infectious or inf lammatory, peptic ulcer disease or less likely artifactual appearance due to peristalsis. Reviewed, dictated and finalized at location A. IMPRESSION: 1. Wall thickening at the gastric antrum which could be related to gastritis ei ther infectious or inflammatory, peptic ulcer disease or less likely artifactua l appearance due to peristalsis.
--- NOTE | 2020-10-26 14:25 | PC.NURSE ---
pt to er lobby per w/c with family member. pt c/o frequent n/v for the last 2 days. states she is unable to keep anything down. dry hejessica noted. resp even and non-labored. denies feeling sob. denies c/p. pt informed that er is very busy and erp will see chika.
[2020-10-26 14:29] VITALS: BP 142/90; PULSE 75; RESP 18; TEMP 36; O2SAT 99
[2020-10-26 16:22] VITALS: BP 121/69; PULSE 58; RESP 121; TEMP 36.3; O2SAT 99
--- NOTE | 2020-10-26 16:34 | ECG_ITS ---
Measurements Intervals [place] Rate: 58 P: 62 [place]: 141 QRS: 31 QRSD: 106 T: 99 QT: 470 QTc: 463 Interpretive Statements SINUS BRADYCARDIA POSSIBLE LEFT ATRIAL ENLARGEMENT ST-T WAVE ABNORMALITY IN ANT/HIGH LAT LEADS- CONSIDER ISCHEMIA ABNORMAL ECG Electronically Signed On 10-26-2020 17:06:09 CDT by Sabas Savage D.O.
--- NOTE | 2020-10-26 16:39 | PC.NURSE ---
report to clint de jesus rn
[2020-10-26 16:58] LABS: Basophils Absolute Auto 0.02 K/mm3 (0.00-0.10); Basophils Percent Auto 0.3 % (0.0-1.0); Eosinophils Absolute Auto 0.15 K/mm3 (0.02-0.50); Eosinophils Percent Auto 1.9 % (1.0-6.0); Hematocrit 49.7 % (35.0-49.0); Hemoglobin 17.4 g/dL (12.0-15.0); Immature Granulocyte Absolute 0.03 K/mm3 (0.00-0.00); Immature Granulocyte Percent A 0.4 % (0.0-0.0); Lymphocytes Absolute Auto 1.43 K/mm3 (1.10-4.50); Lymphocytes Percent Auto 17.9 % (18.0-42.0); Mean Corpuscular Hemoglobin 30.5 pg (27.0-31.0); Mean Platelet Volume 9.2 fl (9.2-11.8); Monocytes Absolute Auto 0.64 K/mm3 (0.10-0.90); Neutrophils Absolute Auto 5.7 K/mm3 (1.7-7.2); Neutrophils Percent Auto 71.5 % (50.0-70.0); Platelet Count Result 233 K/mm3 (150-420); Red Blood Count 5.71 M/mm3 (4.20-5.40); Red Cell Distribution Width 10.9 % (11.6-14.4)
[2020-10-26] MEDS: PANTOPRAZOLE SODIUM IV 40 MG VIAL IV PUSH (17:00)
[2020-10-26] MEDS: ONDANSETRON INJ 4 MG/2 ML VIAL IV PUSH (17:00)
[2020-10-26] MEDS: SODIUM CHLORIDE 0.9% IV 500 ML 999 ML IV CONT (17:00)
[2020-10-26 17:16] LABS: Alanine Aminotransferase 36 U/L (14-59); Alkaline Phosphatase 83 U/L (46-116); Anion Gap 11 mmol/L (8-16); Aspartate Amino Transferase 19 U/L (15-37); Bilirubin,Total 0.8 mg/dL (0.00-1.00); Blood Urea Nitrogen 17 mg/dL (7-18); Calcium 9.4 mg/dL (8.5-10.1); Carbon Dioxide 27 mmol/L (21-32); Chloride 92 mmol/L (98-108); Estimated CRCL calculation 61 ml/min; Estimated Glomerular Filt Rate 58; Glucose 110 mg/dL (70-99); Lipase 147 U/L (73-393); Osmolality Calculated 272 mOsm/kg (285-295); Potassium 3.5 mmol/L (3.5-5.1); Sodium 130 mmol/L (136-145); Total Protein 7.8 g/dL (6.4-8.2); Troponin I 5.8 ng/L (0.00-60.4)
[2020-10-26 17:19] LABS: Lactic Acid Reflex 1.3 mmol/L (0.4-2.0)
[2020-10-26 17:20] LABS: Serum Qual hCG Negative
[2020-10-26 17:21] LABS: SPREG INTERNAL CONTROL Positive
[2020-10-26 20:00] LABS: Cholesterol 166 mg/dL (0-200); HDL Direct 44 mg/dL (40-60); Hemoglobin A1C 5.6 % (<5.7); LDL Cholesterol Calculated 98 mg/dL (<130); Triglycerides 120 mg/dL (0-150)
[2020-10-26] MEDS: ATORVASTATIN 40 MG TABLET 80 MG PO (20:16)
[2020-10-26] MEDS: ASPIRIN 325 MG ENTERIC TABLET PO (20:16)
[2020-10-26 20:46] VITALS: BP 113/69; PULSE 70; RESP 16; O2SAT 97
[2020-10-26 21:24] VITALS: BP 135/84; PULSE 60; RESP 20; O2SAT 99
[2020-10-26 21:27] LABS: SARS-CoV-2 Ag Negative (Negative)
--- NOTE | 2020-10-26 22:26 | PC.NURSE ---
Call from [facility] for information, will process a report and call back when a bed is available.
--- NOTE | 2020-10-26 22:44 | ED.NAVMDI ---
HPI - Nausea/Vomiting/Diarrhea General Chief complaint: Nausea/Vomiting/Diarrhea Stated complaint: VOMITTING HEADACHE Time Seen by Provider: 10/26/20 13:11 Source: patient and RN notes reviewed Mode of arrival: wheelchair Limitations: no limitations History of Present Illness MD elicited complaint: nausea, vomiting and other (overwhelming dizziness, unable to stand or walk ) Onset (ago): day(s) (3) Description of vomiting: food contents Associated nausea: Yes Associated abdominal pain: Yes Location of pain: epigastric Radiation: periumbilical Pain consistency: constant Severity: mild Quality: cramping, aching and dull Exacerbating factors: none Relieving factors: none Associated symptoms: headaches Related Data Allergies Allergy/AdvReac Type Severity Reaction Status Date / Time Penicillins Allergy Intermediate Unknown Verified 10/12/20 06:50 Review of Systems Review of Systems: All systems reviewed & are unremarkable except as noted in HPI and below Constitutional: Constitutional: Reports as per HPI and Reports no additional constitutional complaints Eyes: Eyes: Reports as per HPI and Reports no additional eye complaints ENT: Reports system reviewed and no additional complaints, except as documented and Reports as per HPI Cardiovascular: Cardiovascular: Reports as per HPI and Reports no additional cardiovascular complaints Respiratory: Respiratory: Reports as per HPI and Reports no additional respiratory complaints Gastrointestinal: Gastrointestinal: Reports as per HPI, Reports no additional gastrointestinal complaints, Reports abdominal pain, Reports nausea and Reports vomiting Genitourinary: Genitourinary: Reports no additional female genitourinary complaints and Reports as per HPI Musculoskeletal: Musculoskeletal: Reports no additional musculoskeletal complaints and Reports as per HPI Integumentary/Breasts: Skin/Breast: Reports system reviewed and no additional complaints, except as docu and Reports as per HPI Neurologic: Reports system reviewed and no additional complaints, except as documented and Reports as per HPI Psychiatric: Psychiatric: Reports no additional psychiatric complaints and Reports as per HPI Endocrine: Endocrine: Reports no additional endocrine complaints and Reports as per HPI Hematologic/Lymphatic: Hematologic/Lymphatic: Reports no additional hematologic/lymphatic complaints and Reports as per HPI Allergic/Immunologic: Allergic/Immunologic: Reports no additional allergic/immunologic complaints and Reports as per HPI PMFSH Past Medical History Medical History Alcohol abuse HTN (hypertension) Surgical History Surgical History History of cholecystectomy Age 22 Social History Social History Smoking status: Current every day smoker Tobacco type: cigarettes Second hand tobacco smoke exposure: Yes Alcohol intake: current Substance use: unknown Gender identity (if verbalized by the patient): Female Spiritual care concerns: No Exam Const: General: no acute distress, alert and ill appearing Orientation/consciousness: patient oriented x3 HENMT: Head: normal to inspection Ears: external ears normal and TM's normal bilaterally General nose exam: Normal external nose present and Normal nares present Mouth: Yes lip normal and Yes moist mucous membranes Teeth and gingiva: dentition normal Throat: posterior oropharynx normal Eyes: Cornea: corneas normal Pupils: Equal, round and reactive pupils present EOM: EOMs intact bilaterally Neck: Neck: normal visual inspection Chest: Chest palpation & inspection: normal inspection of the chest Resp: Effort & Inspection: normal respiratory effort Auscultation: clear to auscultation bilaterally Cardio: Rate: regular rate Rhythm: regular rhythm GI: GI Palp: Yes
[2020-10-26] MEDS: SODIUM CHLORIDE 0.9% IV 1,000 ML 100 ML IV CONT (22:48)
[2020-10-26 23:17] VITALS: PULSE 61; RESP 18; O2SAT 95
--- NOTE | 2020-10-26 23:19 | PC.NURSE ---
Pt sleeping, VSS awaiting call back from [facility] to give report, pt has bed assigned.
[2020-10-27 00:33] VITALS: BP 135/86; PULSE 68; RESP 20; TEMP 36.6; O2SAT 92
--- NOTE | 2020-10-27 01:20 | PC.NURSE ---
Report given to GBAAS, pt loaded s difficulty, VSS.
== END 2020-10-27 01:29 | disposition short-term general hospital (02) ==
PROVIDERS: Emergency Provider Emergency Medicine; PCP Family Medicine
DX: R42 Dizziness and giddiness (principal); I63.541 Cerebral infarction due to unspecified occlusion or stenosis of right cerebellar artery; K29.00 Acute gastritis without bleeding; Z20.822 Contact with and (suspected) exposure to COVID-19; I10 Essential (primary) hypertension; F17.200 Nicotine dependence, unspecified, uncomplicated
CPT/HCPCS: 36415; 70450; 70496; 70498; 74177; 80053; 80061; 83036; 83605; 83690; 84484; 84703; 85025; 87426; 93005; 96361; 96374; 96375; 99285; A9270; C9113; C9803; J2405; J7030; J7040; Q9967

== ENCOUNTER 2020-11-30 11:44 | Emergency (ER) | payer OTHER, SELFPAY ==
--- NOTE | ~2020-11-30 | CT_ITS ---
EXAMINATION: CT brain wo con INDICATION: Vertigo, recent stroke COMPARISON: 10/26/2020 TECHNIQUE: Standard unenhanced head CT. The dose-length product (DLP) was 605.33 mGy-cm. The mA was a djusted according to patient size. Iterative reconstruction technique was employed. FINDINGS: There is no intracranial hemorrhage, acute infarction, or abnormal mass lesion. There is en cephalomalacia in the left cerebellum related to prior infarction. The ventricles are normal. There i s no abnormal mass effect or midline shift. The sims-white matter differentiation is normal. The basa l cisterns are patent. The orbits are normal. The paranasal sinuses, mastoids and calvarium are denise l. IMPRESSION: 1. No acute intracranial abnormality. 2. Prior left cerebellar infarct. Reviewed, dictated and finalized at location A.
--- NOTE | ~2020-11-30 | XR_ITS ---
EXAMINATION: XR chest 2V DATE: 11/30/2020 12:58 INDICATION: Dizziness TECHNIQUE: PA and lateral views of the chest are obtained. COMPARISON: 09/16/2020 FINDINGS: The lungs are free of acute opacities. There is no pleural effusion or pneumothorax. The ca rdiomediastinal silhouette is normal. There is mild thoracic spondylosis. Surgical clips in the right upper quadrant are likely from prior cholecystectomy. IMPRESSION: 1. No acute cardiopulmonary abnormality. Reviewed, dictated and finalized at location A.
[2020-11-30 12:00] VITALS: BP 149/83; PULSE 76; RESP 20; TEMP 36.4; O2SAT 98
--- NOTE | 2020-11-30 12:07 | ECG_ITS ---
Measurements Intervals [place] Rate: 72 P: 45 [place]: 126 QRS: 43 QRSD: 91 T: 136 QT: 430 QTc: 472 Interpretive Statements SINUS RHYTHM ST-T WAVE ABNORMALITY IN ANTEROLAT/HIGH LAT LEADS- CONSIDER ISCHEMIA ABNORMAL ECG Electronically Signed On 11-30-2020 12:50:57 CDT by Sabas Savage D.O.
[2020-11-30 12:25] VITALS: BP 119/76; PULSE 70
[2020-11-30 12:25] LABS: Basophils Absolute Auto 0.03 K/mm3 (0.00-0.10); Basophils Percent Auto 0.5 % (0.0-1.0); Eosinophils Absolute Auto 0.15 K/mm3 (0.02-0.50); Eosinophils Percent Auto 2.3 % (1.0-6.0); Hemoglobin 13.7 g/dL (12.0-15.0); Immature Granulocyte Absolute 0.03 K/mm3 (0.00-0.00); Immature Granulocyte Percent A 0.5 % (0.0-0.0); Lymphocytes Absolute Auto 1.19 K/mm3 (1.10-4.50); Lymphocytes Percent Auto 18.4 % (18.0-42.0); Mean Corpuscular HGB Conc 35.1 g/dL (32.0-36.0); Mean Corpuscular Hemoglobin 30.8 pg (27.0-31.0); Mean Corpuscular Volume 87.6 fL (78.0-102.0); Mean Platelet Volume 9.1 fl (9.2-11.8); Monocytes Absolute Auto 0.68 K/mm3 (0.10-0.90); Monocytes Percent Auto 10.5 % (2.0-11.0); Neutrophils Absolute Auto 4.4 K/mm3 (1.7-7.2); Neutrophils Percent Auto 67.8 % (50.0-70.0); Platelet Count Result 284 K/mm3 (150-420); Red Blood Count 4.45 M/mm3 (4.20-5.40); Red Cell Distribution Width 12.2 % (11.6-14.4); White Blood Count 6.5 K/mm3 (4.8-10.8)
[2020-11-30 12:27] VITALS: BP 110/80; PULSE 90
--- NOTE | 2020-11-30 12:38 | ED.DIZZY ---
HPI - Dizziness General Chief Complaint: Dizziness Stated Complaint: dizziness-post stroke Time Seen by Provider: 11/30/20 12:00 Source: patient Mode of arrival: wheelchair Limitations: no limitations History of Present Illness HPI Narrative: 45-year-old woman who is 1 month status post posterior CVA and which presented with vertigo and gait disturbance comes in today complaining of a brief episode ( less than 1 minute) of room spinning kind of dizziness while she was lying down. The vertigo has not recurred. Was not provoked by movement and she felt nauseous during the episode. She says she has some fullness in her head but has not had headache, vomiting, weakness, numbness, increased difficulty walking, facial droop or syncope. Patient states she has had no recent cough or cold symptoms, sore throat, fever, chills, dysuria, or diarrhea. MD elicited complaint: vertigo Pertinent past history: stroke Onset (ago): hour(s) (1.5) Timing: sudden onset Severity: moderate Description: room spinning History of similar symptoms: Yes Exacerbating factors: nothing Relieving factors: nothing Associated symptoms: nausea Related Data Home Medications Medication Instructions Recorded Confirmed aspirin 325 mg PO DAILY 11/30/20 11/30/20 Allergies Allergy/AdvReac Type Severity Reaction Status Date / Time Penicillins Allergy Intermediate Unknown Verified 11/30/20 06:56 Review of Systems Review of Systems: All systems reviewed & are unremarkable except as noted in HPI and below Constitutional: Constitutional: Denies chills, Denies fever(s) and Denies weakness Eyes: Eyes: Denies change in vision and Denies photophobia ENT: Denies dysphagia, Denies nasal congestion and Denies sore throat Cardiovascular: Cardiovascular: Denies chest pain and Denies radiating jaw, neck or arm pain Respiratory: Respiratory: Denies cough, Denies dyspnea and Denies wheezing Gastrointestinal: Gastrointestinal: Denies abdominal pain, Denies diarrhea, Denies nausea and Denies vomiting Genitourinary: Genitourinary: Denies hematuria, Denies nocturia and Denies dysuria Musculoskeletal: Musculoskeletal: Denies back pain, Denies arthralgias and Denies joint swelling Integumentary/Breasts: Skin/Breast: Denies pruritus, Denies erythema and Denies rash Neurologic: Reports vertigo, Reports dizziness and Denies syncope Hematologic/Lymphatic: Hematologic/Lymphatic: Denies easy bleeding and Denies easy bruising Allergic/Immunologic: Allergic/Immunologic: Denies lip swelling, Denies throat swelling and Denies tongue swelling PMF Past Medical History Medical History Alcohol abuse HTN (hypertension) Surgical History Surgical History History of cholecystectomy Age 22 Social History Social History Smoking status: Current every day smoker Tobacco type: cigarettes Second hand tobacco smoke exposure: Yes Alcohol intake: current Substance use: unknown Gender identity (if verbalized by the patient): Female Spiritual care concerns: No Exam Const: General: healthy appearing, no acute distress and alert Orientation/consciousness: patient oriented x3 Limitations: no limitations HENMT: Head: normal to inspection Ears: TM's normal bilaterally, EAC's normal and external ear abnormal General nose exam: Normal nares present Face and sinus: normal facial exam Mouth: Yes moist mucous membranes Throat: posterior oropharynx normal Eyes: Conjunctivae: conjunctivae normal Pupils: Equal, round and reactive pupils present EOM: EOMs intact bilaterally Resp: Effort & Inspection: normal respiratory effort and not labored Auscultation: clear to auscultation bilaterally, no rales, no rhonchi and no wheezes Cardio: Rate: regular rate Rhythm: regular rhythm Heart sounds: no murmurs
[2020-11-30 12:40] LABS: Prothrombin Time 10.4 Seconds (9.50-12.10)
[2020-11-30 12:42] LABS: SARS-CoV-2 Ag Negative (Negative)
[2020-11-30 12:45] LABS: Alanine Aminotransferase 34 U/L (14-59); Albumin Level 3.6 g/dL (3.4-5.0); Alkaline Phosphatase 64 U/L (46-116); Anion Gap 11 mmol/L (8-16); Aspartate Amino Transferase 14 U/L (15-37); Bilirubin,Total 0.6 mg/dL (0.00-1.00); Blood Urea Nitrogen 13 mg/dL (7-18); Calcium 8.9 mg/dL (8.5-10.1); Carbon Dioxide 27 mmol/L (21-32); Chloride 99 mmol/L (98-108); Estimated CRCL calculation 81 ml/min; Estimated Glomerular Filt Rate > 60; Glucose 98 mg/dL (70-99); Osmolality Calculated 284 mOsm/kg (285-295); Potassium 4.1 mmol/L (3.5-5.1); Sodium 137 mmol/L (136-145); Total Protein 6.8 g/dL (6.4-8.2)
[2020-11-30 12:46] LABS: Troponin I 5.5 ng/L (0.00-60.4)
[2020-11-30 13:00] VITALS: BP 128/80; PULSE 74; RESP 18; O2SAT 96
--- NOTE | 2020-11-30 13:53 | PC.NURSE ---
Call placed to [facility] for neurologist Dr Katharine Salazar. Pt states this is the neuro Dr she was to f/u c when she was d/c'd from [facility] several weeks ago.
[2020-11-30 14:00] VITALS: BP 126/74; PULSE 70; RESP 20; O2SAT 96
--- NOTE | 2020-11-30 14:29 | PC.NURSE ---
ERP spoke c Dr Mitchell, neurologist at [facility] for consult. POC then discussed c pt for d/c and f/u care.
[2020-11-30 14:31] LABS: Add Urine Microscopic? YES; Appearance Urine Clear (Clear); Bilirubin Urine Negative (Negative); Blood Urine 3+ (Negative); Color Urine Light Yellow (Yellow); Glucose Urine UA Negative (Negative); Ketones Urine Negative (Negative); Leukocyte Esterase Ur Negative (Negative); Nitrate Urine Negative (Negative); Protein Urine Negative (Negative)
[2020-11-30 14:42] LABS: Bacteria Urine Trace /hpf; Squamous Epithelial Cell Urine Rare /hpf (Few); WBC Urine None seen /hpf (0-3)
[2020-11-30 14:45] VITALS: BP 128/85; PULSE 75; RESP 18; TEMP 36.6; O2SAT 99
== END 2020-11-30 14:50 | disposition home or self-care (01) ==
PROVIDERS: Emergency Provider Emergency Medicine; PCP Family Medicine
DX: R42 Dizziness and giddiness (principal); Z20.822 Contact with and (suspected) exposure to COVID-19
CPT/HCPCS: 36415; 70450; 71046; 80053; 81001; 84484; 85025; 85610; 85730; 87426; 93005; 99283; 99284; C9803

== ENCOUNTER 2022-01-22 01:58 | Emergency (ER) | payer OTHER, SELFPAY ==
[2022-01-22] VITALS (21 sets, daily range): BP systolic 150–189; BP diastolic 80–112; PULSE 75–99; RESP 13–28; TEMP 36.5–36.6; O2SAT 89–100
--- NOTE | ~2022-01-22 | XR_ITS ---
EXAMINATION: XR chest 1V portable Exam Date/Time: 01/22/2022 1:30 PERINATAL SPECIALIST HISTORY: Shortness of breath Comparison: 11/30/2020. RESULT: Lines, tubes, and devices: None. Lungs and pleura: Clear. Cardiomediastinal silhouette: Stable. Other: No acute osseous or upper abdominal finding. IMPRESSION: No acute cardiopulmonary process. Reviewed, dictated and finalized at location K. NATAL SPECIALIST
--- NOTE | ~2022-01-22 | CT_ITS ---
EXAMINATION: CTA chest PE protocol DATE: 01/22/2022 03:26 INDICATION: Shortness of breath, midline chest pressure TECHNIQUE: Computed tomography angiography (CTA) of the chest was performed with 100 mL Omnipaque-350 intravenous contrast timed to evaluate the pulmonary arteries. Coronal maximum intensity projection 3D-reconstructions were created by the technologist. Automated exposure control and iterative reconst ruction technique were employed. Exam dose: 292.00 mGy-cm total exam DLP. COMPARISON: 01/22/2022 2 view chest FINDINGS: There is diagnostic contrast enhancement of the pulmonary arteries and no evidence of pulmo nary embolism. No thoracic aortic aneurysm or dissection. Normal heart size. There is coronary artery and aortic and great vessel calcification. No hilar or mediastinal mass lesion or lymphadenopathy. No pericardial or pleural effusion. Diffuse hepatic steatosis. No suspicious osteolytic or osteoblastic lesions. IMPRESSION: No evidence of pulmonary embolism Reviewed, dictated and finalized at Location A. Reviewed, dictated and finalized at location A. MENDER
--- NOTE | 2022-01-22 01:19 | ECG_ITS ---
Measurements Intervals [place] Rate: 79 P: 57 [place]: 119 QRS: 55 QRSD: 98 T: 81 QT: 423 QTc: 488 Interpretive Statements SINUS RHYTHM WITH SHORT [place] INTERVAL POSSIBLE LEFT ATRIAL ENLARGEMENT BORDERLINE ST-T WAVE ABNORMALITY- DIFFUSE LEADS BASELINE ARTIFACT- I, II, AVR, AVL, V2 BORDERLINE ECG COMPARED TO ECG 11/30/2020 12:22:10 ST-T WAVE ABNORMALITY IN ANTEROLAT/HIGH LAT LEADS- CONSIDER ISCHEMIA RESOLVED Electronically Signed On 01-22-2022 7:27:19 FUR MIXER OPERATOR by Sabas Savage D.O.
[2022-01-22] MEDS: ALPRAZolam (*CRX) 0.5 MG TABLET PO (01:29)
[2022-01-22] MEDS: METOPROLOL TARTRATE INJ 5 MG/5 ML VIAL IV PUSH (01:30)
[2022-01-22] MEDS: IPRATROPIUM 0.5 MG/ALBUTEROL SULFATE 2.5 MG AMPUL.NEB 3 ML INHALATION (01:43)
[2022-01-22 02:04] LABS: Basophils Absolute Auto 0.04 K/mm3 (0.00-0.10); Basophils Percent Auto 1.3 % (0.0-1.0); Eosinophils Absolute Auto 0.05 K/mm3 (0.02-0.50); Eosinophils Percent Auto 1.6 % (1.0-6.0); Hematocrit 38.9 % (35.0-49.0); Hemoglobin 13.6 g/dL (12.0-15.0); Immature Granulocyte Absolute 0.01 K/mm3 (0.00-0.00); Immature Granulocyte Percent A 0.3 % (0.0-0.0); Lymphocytes Absolute Auto 1.16 K/mm3 (1.10-4.50); Lymphocytes Percent Auto 36.9 % (18.0-42.0); Mean Corpuscular Volume 91.5 fL (78.0-102.0); Mean Platelet Volume 9.7 fl (9.2-11.8); Monocytes Absolute Auto 0.43 K/mm3 (0.10-0.90); Monocytes Percent Auto 13.7 % (2.0-11.0); Neutrophils Absolute Auto 1.5 K/mm3 (1.7-7.2); Neutrophils Percent Auto 46.2 % (50.0-70.0); Platelet Count Result 161 K/mm3 (150-420); Red Blood Count 4.25 M/mm3 (4.20-5.40); Red Cell Distribution Width 13.9 % (11.6-14.4); White Blood Count 3.1 K/mm3 (4.8-10.8)
[2022-01-22 02:20] LABS: Lactic Acid Reflex 3.5 mmol/L (0.4-2.0)
[2022-01-22 02:22] LABS: Partial Thromboplastin Time 28.1 SEC (23.90-30.70); Prothrombin Time 11.4 Seconds (9.50-12.10)
[2022-01-22 02:22] LABS: Alanine Aminotransferase 136 U/L (14-59); Alkaline Phosphatase 142 U/L (46-116); Anion Gap 13 mmol/L (8-16); Appearance Urine Clear (Clear); Aspartate Amino Transferase 222 U/L (15-37); Bilirubin Urine Negative (Negative); Bilirubin,Total 0.8 mg/dL (0.00-1.00); Blood Urea Nitrogen 4 mg/dL (7-18); Blood Urine Negative (Negative); Calcium 8.4 mg/dL (8.5-10.1); Carbon Dioxide 24 mmol/L (21-32); Chloride 99 mmol/L (98-108); Estimated CRCL calculation 106 ml/min; Estimated Glomerular Filt Rate > 60; Ethanol 135 mg/dL (0-6); Glucose 83 mg/dL (70-99); Glucose Urine UA Negative (Negative); Ketones Urine Negative (Negative); Leukocyte Esterase Ur Trace LEU/UL (Negative); Lipase 249 U/L (73-393); NT Pro B Type Natriuretic Pept 185 pg/mL (0-125); Nitrate Urine Negative (Negative); Osmolality Calculated 277 mOsm/kg (285-295); Potassium 3.6 mmol/L (3.5-5.1); Protein Urine Negative (Negative); Sodium 136 mmol/L (136-145); Specific Grav Ur <= 1.005 (1.010-1.020); Total Protein 6.8 g/dL (6.4-8.2); Urobilinogen Urine 0.2 mg/dL (0.2-1.0)
[2022-01-22 02:24] LABS: Troponin I 12.4 ng/L (0.00-60.4)
[2022-01-22 02:24] LABS: CRP < 0.5 mg/dL (0.0-0.9)
[2022-01-22 02:31] LABS: Add Urine Microscopic? YES; Color Urine Light Yellow (Yellow); RBC Urine None seen /hpf (0-2)
[2022-01-22 02:32] LABS: Amorphous Sediment Urine Few; Bacteria Urine 1+ /hpf; Squamous Epithelial Cell Urine Moderate /hpf (Few); WBC Urine 0-3 /hpf (0-3)
[2022-01-22 02:33] LABS: D Dimer 0.74 mg/L (0.19-0.50)
[2022-01-22 02:55] LABS: Influenza A QL RT-PCR Negative (Negative); Influenza B QL RT-PCR Negative (Negative)
[2022-01-22 02:56] LABS: SARS-CoV-2 RNA PCR Negative (Negative)
--- NOTE | 2022-01-22 03:00 | ED.GENADULT ---
HPI - General Adult General Chief complaint: Unspecified Stated complaint: Sickness Source: patient and family Mode of arrival: wheelchair History of Present Illness HPI narrative: this is a 46-year-old female with history alcohol abuse, with a history of stroke, hypertension hyperlipidemia and was restless this evening with some anxiety shortness of breath with chest tightness is no abdominal pain no fever chills no nausea vomiting no dysuria no diarrhea constipation. Patient has a history of hypertension and her blood pressure was elevated. Onset (ago): week(s) Related Data Allergies Allergy/AdvReac Type Severity Reaction Status Date / Time Penicillins Allergy Intermediate Unknown Verified 03/01/21 06:49 Review of Systems Review of Systems: All systems reviewed & are unremarkable except as noted in HPI and below PMFSH Past Medical History Medical History Alcohol abuse HTN (hypertension) Surgical History Surgical History History of cholecystectomy Age 22 Social History Social History Smoking status: Current every day smoker Tobacco type: cigarettes Second hand tobacco smoke exposure: Yes Alcohol intake: current Substance use: unknown Gender identity (if verbalized by the patient): Female Spiritual care concerns: No Exam Const: General: cooperative and no acute distress HENMT: Head: normal to inspection Ears: hearing grossly normal bilaterally Face/Nose/Sinus: Normal external nose present Face and sinus: normal facial exam Mouth: Yes Normal oral and palatal mucosa present Eyes: General: appearance normal, both eyes and all related structures Visual Ardon: normal visual ardon by confrontation Alignment and Position: alignment normal Periorbital: periorbital findings normal Neck: Neck: normal visual inspection, full ROM, no lymphadenopathy and no meningeal signs Chest: Chest palpation & inspection: normal inspection of the chest Resp: Effort & Inspection: normal respiratory effort Auscultation: clear to auscultation bilaterally Cardio: Jugular venous distension: no JVD Palpation: normal PMI Rate: regular rate Rhythm: regular rhythm GI: Inspection: normal to inspection : General: Yes bimanual renal exam normal bilaterally and Yes no CVA tenderness Back/Spine/Pelvis: Back: no CVA tenderness Skin: General skin exam: normal color and no rashes or lesions noted Neuro: General: oriented to person, oriented to place and oriented to time Speech: normal speech Extrem: General: normal to inspection, full ROM and capillary refill normal Right lower extremity: normal to inspection Psych: Appearance: grossly normal, well kempt and disheveled Mental Status: mental status grossly normal Speech and movement: Normal speech and movement present Course Course Emergency Course: EKG chest x-ray and labs reviewed with patient, the patient received a DuoNeb and p.o. Xanax for his anxiety, has elevated D-dimer and CTA was performed which showed no pulmonary embolism did show some coronary calcification and hepatic steatosis, UA showed trace leukocytes and 1+ bacteria and will send antibiotics to her pharmacy. Vital Signs Vital signs: Vital Signs Pulse Rate 88 01/22/22 01:10 LOG WASHER Pulse Oximetry 100 01/22/22 01:10 LOG WASHER Temperature 36.6 C 01/22/22 04:37 Pulse Rate 80 01/22/22 04:37 Respiratory Rate 20 01/22/22 04:37 Blood Pressure 153/95 H 01/22/22 04:37 Pulse Oximetry 95 01/22/22 04:37 Oxygen Delivery Room Air 01/22/22 04:37 Medical Decision Making Vital Signs Vital Signs: Vital Signs Pulse Rate 88 01/22/22 01:10 LOG WASHER Pulse Oximetry 100 01/22/22 01:10 LOG WASHER Temperature 36.6 C 01/22/22 04:37 Pulse Rate 80 01/22/22 04:37 Respiratory Rate 20 01/22/22 04:37 Blood Pre
[2022-01-22] MEDS: SODIUM CHLORIDE 0.9% IV 1,000 ML 999 ML IV CONT (03:06)
--- NOTE | 2022-01-22 03:25 | PC.NURSE ---
Pt resting, back from CT, awaiting results. VSS, pt A&O x3. Pt assisted x1 to use BSC and back to bed.
--- NOTE | 2022-01-22 04:38 | PC.NURSE ---
Pt sleeping, resting s distress, RR even and nonlabored, no CT report as of yet, awaiting results.
[2022-01-22 05:00] LABS: Reflex Lactic Acid Yes or No Add Lactic
[2022-01-22] MEDS: NITROFURANTOIN MONOHYD MACROCR 100 MG CAP PO (05:36)
[2022-01-22 05:39] LABS: Lactic Acid 2.2 mmol/L (0.4-2.0)
--- NOTE | 2022-01-30 14:12 | PC.NURSE ---
BLOOD CULTURES X2 FINAL RESULTS: NO GROWTH AFTER 5 DAYS. NO ACTION NEEDED
== END 2022-01-22 05:43 | disposition home or self-care (01) ==
PROVIDERS: Emergency Provider Emergency Medicine; PCP Family Medicine
DX: F10.10 Alcohol abuse, uncomplicated (principal); I10 Essential (primary) hypertension; N39.0 Urinary tract infection, site not specified; K70.0 Alcoholic fatty liver; Z20.822 Contact with and (suspected) exposure to COVID-19; F17.200 Nicotine dependence, unspecified, uncomplicated
CPT/HCPCS: 36415; 71045; 71275; 80053; 80307; 81001; 83605; 83690; 83880; 84484; 85025; 85380; 85610; 85730; 86140; 87040; 87502; 93005; 94640; 96361; 96374; 99284; A9270; J7030; Q9967; U0003; U0005

== ENCOUNTER 2022-01-22 10:17 | Observation (INO) | payer OTHER, SELFPAY ==
[2022-01-22] VITALS (23 sets, daily range): BP systolic 132–182; BP diastolic 72–101; PULSE 83–113; RESP 14–20; TEMP 36.3–37.2; O2SAT 95–100; BMI 25.7
--- NOTE | ~2022-01-22 | XR_ITS ---
XR chest 2V DATE: 01/22/2022 12:24 INDICATION: Shortness of breath, midline chest pressure TECHNIQUE: AP and lateral views COMPARISON: 01/22/2022 CT pulmonary scan 01/22/2022 portable AP chest FINDINGS: Normal heart size. Aortic calcification and minimal unfolding. No hilar or mediastinal enla rgement. No pulmonary infiltrate or consolidation, pleural effusion or pulmonary vascular congestion or pneumothorax. Osteopenia. Scoliosis and mild degenerative change of the thoracolumbar spine. Status post cholecystectomy. IMPRESSION: No active cardiopulmonary disease Reviewed, dictated and finalized at location A. ORT ELECTRICIAN
--- NOTE | 2022-01-22 10:43 | ECG_ITS ---
Measurements Intervals [place] Rate: 99 P: 75 ME: 117 QRS: 61 QRSD: 84 T: 80 QT: 372 QTc: 478 Interpretive Statements SINUS RHYTHM WITH SHORT [place] INTERVAL BORDERLINE ST ABNORMALITY- DIFFUSE LEADS BASELINE ARTIFACT- I, II, AVR, AVL BORDERLINE ECG COMPARED TO ECG 01/22/2022 01:28:05 NO SIGNIFICANT CHANGES Electronically Signed On 01-22-2022 14:04:20 HYDRAULIC MODELING ENGINEER by Sabas Savage D.O.
--- NOTE | 2022-01-22 10:49 | ED.SOB ---
HPI - SOB/Dyspnea General Chief Complaint: Chest Pain Stated Complaint: legs,feet and ankles swelling trouble breathing Time Seen by Provider: 01/22/22 10:22 Source: patient and RN notes reviewed Mode of arrival: ambulatory Limitations: no limitations History of Present Illness HPI Narrative: patient comes in for the 2nd time the last 12 hours. She says that she continues to have some difficulty breathing like she can not get a deep breath in. She was here last evening. The symptoms started last night. She had a complete workup including CTA due to an elevated D-dimer. CTA showed no evidence of any pulmonary embolism. She was given a breathing treatment which she said helped. She continues to smoke 2 packs per day. She admits to being an alcoholic drinking 15 beers per day. She was also found to have a UTI and was started on Macrobid. MD elicited complaint: shortness of breath Onset (ago): day(s) (1) Timing: constant Severity: moderate Exacerbating factors: exertion Relieving factors: bronchodilators (last pm in ER) Associated symptoms: chest pain ( Only heaviness feels like she can not get a deep breath) Treatment prior to arrival: none Related Data Home oxygen amount: none Home Medications Medication Instructions Recorded Confirmed carvedilol 25 mg tablet 25 mg PO BID 01/22/22 01/22/22 potassium chloride 20 mEq 20 meq PO DAILY 01/22/22 01/22/22 tablet,extended release(part/cryst) (Klor-Con M) Allergies Allergy/AdvReac Type Severity Reaction Status Date / Time Penicillins Allergy Intermediate Unknown Verified 01/22/22 10:38 Review of Systems Review of Systems: All systems reviewed & are unremarkable except as noted in HPI and below Constitutional: Constitutional: Denies chills, Denies excessive sweating and Denies fever(s) Cardiovascular: Cardiovascular: Denies rapid heart rate Gastrointestinal: Gastrointestinal: Denies nausea and Denies vomiting PMFSH Past Medical History Medical History Alcohol abuse HTN (hypertension) Surgical History Surgical History History of cholecystectomy Age 22 Social History Social History Smoking packs per day: 2 Smoking cigarettes per day: 40.0 Years smoked: 30 Smoking pack-years: 60.00 Smoking status: Current every day smoker Tobacco type: cigarettes Second hand tobacco smoke exposure: Yes Alcohol intake: current Drinks per week: 15 Substance use: former Has the Lack of Transportation Kept You From Medical Appointments or From Getting Medications?: Yes Within the Past 12 Months, Were You Worried Whether Your Food Would Run Out Before You Got Money to Buy More?: Never True What is Your Housing Situation Today?: I Have Housing Are You Worried That in the Next 2 Months, You May Not Have Your Own Housing to Live In?: No Do You Have Trouble Paying Your Heating Or Electricity Bill?: No Do You Have Trouble Paying For Medicines?: No Are You Currently Unemployed and Looking for Work?: No Highest Level of Education Completed: High School Diploma/GED Do You Have Trouble With Childcare or the Care of a Family Member?: No Gender identity (if verbalized by the patient): Female Spiritual care concerns: No Exam Const: General: no acute distress, alert and ill appearing chronically Nutritional Appearance: well nourished Orientation/consciousness: patient oriented x3 Limitations: no limitations HENMT: Head: normal to inspection Ears: external ears normal Face/Nose/Sinus: Normal external nose present Face and sinus: normal facial exam Mouth: Yes moist mucous membranes Eyes: Conjunctivae: conjunctivae normal Pupils: Equal, round and reactive pupils present EOM: EOMs intact bilaterally Neck: Neck: normal visual inspection Resp: Effort & Inspection: normal respi
[2022-01-22 11:01] LABS: Base Excess ABG -0.5 mmol/L (0-2); HCO3 ABG 20.6 mmol/L (23-29); Oxygen Content ABG 18.5 %vol (16.0-22.0); Oxygen Saturation ABG 94.3 % (95-97); Oxyhemoglobin 90.1 % (94-100); PCO2 ABG 25.4 mmHg (35-45); PO2 ABG 70.3 mmHg (80-90); Total Hemoglobin 14.6 g/dL (12.0-18.0); pH ABG 7.53 (7.35-7.45)
[2022-01-22 11:03] LABS: Basophils Absolute Auto 0.03 K/mm3 (0.00-0.10); Basophils Percent Auto 0.8 % (0.0-1.0); Eosinophils Absolute Auto 0.07 K/mm3 (0.02-0.50); Eosinophils Percent Auto 1.8 % (1.0-6.0); Hematocrit 40.3 % (35.0-49.0); Immature Granulocyte Absolute 0.01 K/mm3 (0.00-0.00); Immature Granulocyte Percent A 0.3 % (0.0-0.0); Lymphocytes Absolute Auto 0.99 K/mm3 (1.10-4.50); Lymphocytes Percent Auto 25.6 % (18.0-42.0); Mean Corpuscular HGB Conc 34.7 g/dL (32.0-36.0); Mean Corpuscular Hemoglobin 31.7 pg (27.0-31.0); Mean Corpuscular Volume 91.4 fL (78.0-102.0); Mean Platelet Volume 9.3 fl (9.2-11.8); Monocytes Absolute Auto 0.52 K/mm3 (0.10-0.90); Monocytes Percent Auto 13.5 % (2.0-11.0); Neutrophils Absolute Auto 2.2 K/mm3 (1.7-7.2); Platelet Count Result 154 K/mm3 (150-420); Red Blood Count 4.41 M/mm3 (4.20-5.40); Red Cell Distribution Width 13.9 % (11.6-14.4); White Blood Count 3.9 K/mm3 (4.8-10.8)
[2022-01-22 11:19] LABS: Device ROOM AIR; Modified Allen's Test Pass; Site Drawn LEFT RADIAL
[2022-01-22 11:22] LABS: Lactic Acid Reflex 2.2 mmol/L (0.4-2.0)
[2022-01-22 11:28] LABS: Alanine Aminotransferase 127 U/L (14-59); Alkaline Phosphatase 138 U/L (46-116); Anion Gap 11 mmol/L (8-16); Aspartate Amino Transferase 205 U/L (15-37); Bilirubin,Total 1.1 mg/dL (0.00-1.00); Blood Urea Nitrogen 4 mg/dL (7-18); Calcium 8.2 mg/dL (8.5-10.1); Carbon Dioxide 26 mmol/L (21-32); Chloride 100 mmol/L (98-108); Estimated CRCL calculation 103 ml/min; Estimated Glomerular Filt Rate > 60; Glucose 93 mg/dL (70-99); Magnesium 1.7 mg/dL (1.8-2.4); NT Pro B Type Natriuretic Pept 358 pg/mL (0-125); Osmolality Calculated 280 mOsm/kg (285-295); Potassium 3.5 mmol/L (3.5-5.1); Sodium 137 mmol/L (136-145); Total Protein 6.6 g/dL (6.4-8.2); Troponin I 12.6 ng/L (0.00-60.4)
[2022-01-22] MEDS: IPRATROPIUM 0.5 MG/ALBUTEROL SULFATE 2.5 MG AMPUL.NEB 3 ML INHALATION ×2 (11:41→19:03)
[2022-01-22] MEDS: methylPREDNISolone SOD SUCC 125 MG VIAL IV PUSH (13:37)
[2022-01-22] MEDS: ATORVASTATIN 40 MG TABLET 80 MG PO (15:11)
[2022-01-22] MEDS: ACETAMINOPHEN 325 MG TABLET 650 MG PO ×2 (15:11→20:47)
[2022-01-22] MEDS: LORazepam INJ (*CRX) 2 MG/ML VIAL 0.5 MG IV PUSH (15:48)
[2022-01-22] MEDS: chlordiazePOXIDE (*CRX) 25 MG CAPSULE PO (17:59)
[2022-01-22] MEDS: methylPREDNISolone SOD SUCC 40 MG VIAL IV PUSH (17:59)
[2022-01-22] MEDS: hydrALAZINE 10 MG TABLET PO ×2 (17:59→20:49)
[2022-01-22] MEDS: carvediloL 12.5 MG TABLET 25 MG PO (20:49)
[2022-01-22] MEDS: traZODone HCL 50 MG TABLET PO (20:50)
--- NOTE | 2022-01-22 20:58 | PC.NURSE ---
Addendum entered by Neena Mccabe RN 01/22/22 21:01: Time for note was 1934. Original Note: Patient lying in bed. O2 on @ 2 lpm/nc. No SOB noted or complained of.spO2 @ 97%. O2 turned down to 1 lpm/nc. Call light in reach.
--- NOTE | 2022-01-22 21:00 | PC.NURSE ---
Patient's SpO2 @ 99% on O2 @ 1 lpm/nc. Patient denies SOB and non noted. O2 turned off. Call light in reach.
[2022-01-23] VITALS (8 sets, daily range): BP systolic 141–154; BP diastolic 88–96; PULSE 64–92; RESP 16–18; TEMP 36.6; O2SAT 97–99
[2022-01-23] MEDS: chlordiazePOXIDE (*CRX) 25 MG CAPSULE PO ×2 (00:05→05:04)
[2022-01-23] MEDS: IPRATROPIUM 0.5 MG/ALBUTEROL SULFATE 2.5 MG AMPUL.NEB 3 ML INHALATION ×2 (00:10→05:30)
--- NOTE | 2022-01-23 03:45 | PC.NURSE ---
Patient continues to be on room air with no SOB complained of or noted. SpO2 @ 97%. Call light in reach.
--- NOTE | 2022-01-23 05:08 | PC.NURSE ---
Librium given as ordered. Patient to/from bedside commode with stand by assist. No shortness of breath noted or complained of. Patient stated that she has slept more tonight than she has in a long time and says it felt good. Call light in reach.
[2022-01-23 05:16] LABS: Hemoglobin 12.3 g/dL (12.0-15.0); Mean Corpuscular HGB Conc 34.2 g/dL (32.0-36.0); Mean Corpuscular Hemoglobin 31.5 pg (27.0-31.0); Mean Corpuscular Volume 92.1 fL (78.0-102.0); Mean Platelet Volume 9.9 fl (9.2-11.8); Platelet Count Result 123 K/mm3 (150-420); Red Blood Count 3.91 M/mm3 (4.20-5.40); Red Cell Distribution Width 13.8 % (11.6-14.4)
[2022-01-23 05:30] LABS: Alanine Aminotransferase 98 U/L (14-59); Albumin Level 2.4 g/dL (3.4-5.0); Alkaline Phosphatase 115 U/L (46-116); Anion Gap 8 mmol/L (8-16); Aspartate Amino Transferase 135 U/L (15-37); Bilirubin,Total 0.7 mg/dL (0.00-1.00); Blood Urea Nitrogen 6 mg/dL (7-18); Carbon Dioxide 25 mmol/L (21-32); Chloride 100 mmol/L (98-108); Estimated CRCL calculation 106 ml/min; Estimated Glomerular Filt Rate > 60; Glucose 148 mg/dL (70-99); Osmolality Calculated 276 mOsm/kg (285-295); Potassium 4.1 mmol/L (3.5-5.1); Sodium 133 mmol/L (136-145); Total Protein 5.8 g/dL (6.4-8.2)
[2022-01-23] MEDS: POTASSIUM CHLORIDE 20 MEQ TABLET PO (08:11)
[2022-01-23] MEDS: ATORVASTATIN 40 MG TABLET 80 MG PO (08:12)
[2022-01-23] MEDS: hydrALAZINE 10 MG TABLET PO (08:12)
[2022-01-23] MEDS: ASPIRIN 325 MG ENTERIC TABLET PO (08:12)
[2022-01-23] MEDS: CALCIUM CARBONATE (OSCAL) 500 MG TABLET PO (08:13)
[2022-01-23] MEDS: carvediloL 12.5 MG TABLET 25 MG PO (08:13)
[2022-01-23] MEDS: ENOXAPARIN 40 MG/0.4 ML SYRINGE SUB-Q (08:14)
[2022-01-23] MEDS: MAGNESIUM OXIDE 400 MG TABLET PO (08:14)
[2022-01-23] MEDS: methylPREDNISolone SOD SUCC 40 MG VIAL IV PUSH (08:14)
[2022-01-23] MEDS: THIAMINE HCL 200 MG/2 ML VIAL 100 MG IV PUSH (08:15)
[2022-01-23] MEDS: FUROSEMIDE INJ 20 MG/2 ML VIAL IV PUSH (08:15)
--- NOTE | 2022-01-23 08:35 | PM.SD2 ---
Same Day Admit/Disch: HPI History of Present Illness Chief complaint: COPD Narrative: Dayana Portillo is a 46 year old female that presented to our emergency department with complaints of shortness of breath , chest discomfort and an control cough. patient has a past medical history of alcohol abuse, tobacco dependency, hypertension and undiagnosed COPD. this was patient's 2nd visit to hospital within 24 hours. Patient additionally gain due to shortness of breath was diagnosed with a urinary tract infection patient notes that she went home and did not feel any better and return to emergency department. Patient is being admitted for COPD exacerbation. Zeina BCs 3.9, RBCs 4.41, hemoglobin 14.0, hematocrit 40.3, platelets 154, sodium 137, potassium 3.5, BUN 4, creatinine 0.57, glucose 93, lactic acid 2.2, calcium 8.2, magnesium 1.7, total bilirubin 1.1, AST 205, ALT 127, troponin 12.6, BNP 358. The patient denies SOB, CP, palpitation, extremity numbness, lightheadedness, dizziness, constipation, diarrhea, chills, or fever. Discharge instructions reviewed with patient, as well as provided in writing per nursing staff. The instructions also include specific and strict return/GO TO THE ER as well as f/u information. All questions have been answered, and the patient and/or family deny any further questions with discharge and discharge plan. Patient continues to have bed uncontrolled cough with congestion to her chest area. [facility] Past Medical History Medical History Alcohol abuse HTN (hypertension) Surgical History Surgical History History of cholecystectomy Age 22 Social History Social History Smoking packs per day: 2 Smoking cigarettes per day: 40.0 Years smoked: 30 Smoking pack-years: 60.00 Smoking status: Current every day smoker Tobacco type: cigarettes Second hand tobacco smoke exposure: Yes Alcohol intake: current Drinks per week: 15 Substance use: former Has the Lack of Transportation Kept You From Medical Appointments or From Getting Medications?: Yes Within the Past 12 Months, Were You Worried Whether Your Food Would Run Out Before You Got Money to Buy More?: Never True What is Your Housing Situation Today?: I Have Housing Are You Worried That in the Next 2 Months, You May Not Have Your Own Housing to Live In?: No Do You Have Trouble Paying Your Heating Or Electricity Bill?: No Do You Have Trouble Paying For Medicines?: No Are You Currently Unemployed and Looking for Work?: No Highest Level of Education Completed: High School Diploma/GED Do You Have Trouble With Childcare or the Care of a Family Member?: No Gender identity (if verbalized by the patient): Female Spiritual care concerns: No Same Day Admit/Disch: Med Pre-admit Medications Home Medications Medication Instructions Recorded Confirmed Type atorvastatin 80 mg tablet See Rx Instructions .Route 08/22/21 01/22/22 Rx .COMPLEX #90 tabs hydralazine 10 mg tablet See Rx Instructions .Route 09/06/21 01/22/22 Rx .COMPLEX #120 tabs aspirin 325 mg tablet 325 mg PO DAILY #30 tabs 01/16/22 01/22/22 Rx carvedilol 25 mg tablet 25 mg PO BID 01/22/22 01/22/22 History nitrofurantoin 100 mg PO Q12H 7 days #14 caps 01/22/22 01/22/22 Rx monohydrate/macrocrystals 100 mg capsule (Macrobid) potassium chloride 20 mEq 20 meq PO DAILY 01/22/22 01/22/22 History tablet,extended release(part/cryst) (Klor-Con M) albuterol sulfate 90 mcg/actuation 1 inh inhalation Q4-6H PRN copd #1 01/23/22 Rx breath activated powder inhaler ea benzonatate 200 mg capsule 200 mg PO TID PRN cough #60 caps 01/23/22 Rx budesonide-formoterol HFA 80 2 puff inhalation Q12H #10.2 grams 01/23/22 Rx mcg-4.5 mcg/actuation aerosol inhaler (Symbicort) folic acid 20 mg capsule 20 mg P
--- NOTE | 2022-01-23 10:13 | PC.NURSE ---
Telemetry discontinued and IV access discontinued in preparation for discharge.
--- NOTE | 2022-01-23 10:35 | PC.NURSE ---
Patient discharged from unit in w/c accompanied by jingle writer and patient's . Discharge instructions give to patient, and prescriptions transmitted to pharmacy. Patient verbalized understanding of instructions. Patient left property in private vehicle. All personal belongings sent home with patient.
--- NOTE | 2022-01-24 13:16 | PC.NURSE ---
Pt states she received and understood her discharge instructions. Also states I'm just trying to decide when I should take what meds so I don't have to take them all at once .
== END 2022-01-23 10:35 | disposition home or self-care (01) ==
LOC: CHSED 14:13 → CHS2ND 14:17
PROVIDERS: Nurse Practitioner; Admitting Provider Internal Medicine; Emergency Provider Emergency Medicine; PCP Family Medicine; Visit Provider Internal Medicine
DX: J44.1 Chronic obstructive pulmonary disease with (acute) exacerbation (principal); I10 Essential (primary) hypertension; N39.0 Urinary tract infection, site not specified; D61.818 Other pancytopenia; E83.42 Hypomagnesemia; E83.51 Hypocalcemia; R79.89 Other specified abnormal findings of blood chemistry; F17.210 Nicotine dependence, cigarettes, uncomplicated; F10.10 Alcohol abuse, uncomplicated; Z90.49 Acquired absence of other specified parts of digestive tract
CPT/HCPCS: 36415; 36600; 71046; 80053; 82805; 83605; 83735; 83880; 84484; 85025; 85027; 93005; 94640; 96365; 96372; 96374; 96375; 96376; 99285; A9270; G0378; G0379; J0696; J1650; J1940; J2060; J2920; J2930; J3411

== ENCOUNTER 2022-01-27 14:01 | Outpatient (CLI) | payer OTHER, SELFPAY ==
[2022-01-27 14:17] LABS: Hematocrit 41.4 % (35.0-49.0); Hemoglobin 13.3 g/dL (12.0-15.0); Immature Platelet Fraction Pct 5.9 % (1.0-7.0); Mean Corpuscular HGB Conc 32.1 g/dL (32.0-36.0); Mean Corpuscular Hemoglobin 30.7 pg (27.0-31.0); Mean Corpuscular Volume 95.6 fL (78.0-102.0); Mean Platelet Volume 11.5 fl (9.2-11.8); Platelet Count Result 158 K/mm3 (150-420); Red Blood Count 4.33 M/mm3 (4.20-5.40); Red Cell Distribution Width 13.5 % (11.6-14.4); White Blood Count 3.5 K/mm3 (4.8-10.8)
[2022-01-27 14:41] LABS: Alanine Aminotransferase 117 U/L (14-59); Albumin Level 3.2 g/dL (3.4-5.0); Alkaline Phosphatase 108 U/L (46-116); Anion Gap 8 mmol/L (8-16); Aspartate Amino Transferase 124 U/L (15-37); Bilirubin,Total 0.8 mg/dL (0.00-1.00); Blood Urea Nitrogen 10 mg/dL (7-18); Calcium 8.9 mg/dL (8.5-10.1); Carbon Dioxide 28 mmol/L (21-32); Chloride 100 mmol/L (98-108); Estimated Glomerular Filt Rate > 60; Glucose 94 mg/dL (70-99); Osmolality Calculated 281 mOsm/kg (285-295); Potassium 4.6 mmol/L (3.5-5.1); Sodium 136 mmol/L (136-145); Total Protein 6.7 g/dL (6.4-8.2)
[2022-01-27 18:17] LABS: Alanine Aminotransferase 118 U/L (14-59); Albumin Level 3.3 g/dL (3.4-5.0); Alkaline Phosphatase 109 U/L (46-116); Aspartate Amino Transferase 124 U/L (15-37); Bilirubin Direct 0.4 mg/dL (0-0.2); Bilirubin,Total 0.8 mg/dL (0.00-1.00); Total Protein 6.7 g/dL (6.4-8.2)
== END 2022-01-27 14:02 | disposition home or self-care (01) ==
LOC: CHSLAB 14:03
PROVIDERS: Nurse Practitioner; PCP Family Medicine; Visit Provider Family Medicine
DX: R74.8 Abnormal levels of other serum enzymes (principal); F10.10 Alcohol abuse, uncomplicated; D61.818 Other pancytopenia
CPT/HCPCS: 36415; 80053; 80076; 82248; 85027; 85055

== ENCOUNTER 2022-02-11 09:47 | Outpatient (CLI) | payer OTHER, SELFPAY ==
--- NOTE | ~2022-02-11 | MR_ITS ---
EXAMINATION: MR brain/brain stem wo con DATE: 02/11/2022 10:43 INDICATION: Disequilibrium. TECHNIQUE: Magnetic resonance imaging (MRI) of the brain and brainstem was performed without intraven ous contrast. COMPARISON: Brain MRI 10/09/2020, head CT 11/30/2020 FINDINGS: There are scattered areas of nonspecific increased T2-weighted signal intensity in the cere bral white matter and trent. There is an old infarct in left cerebellum. There is no intracranial hemo rrhage, acute infarction, or abnormal intracranial mass lesion. The ventricles are normal in size. T he orbits are normal. The paranasal sinuses are clear. The mastoid air cells are normal. IMPRESSION: 1. Old infarct in left cerebellum. 2. Extensive nonspecific cerebral white matter disease and pontine disease, which likely represents c hronic small vessel ischemic disease, stable from 10/09/2020. Reviewed, dictated and finalized at location A. CONDITIONING INSULATION INSTALLER IMPRESSION: 1. Old infarct in left cerebellum. 2. Extensive nonspecific cerebral white matter disease and pontine disease, whi ch likely represents chronic small vessel ischemic disease, stable from 10/10/19 21.
== END 2022-02-11 09:48 | disposition home or self-care (01) ==
LOC: CHSIMG 09:48
PROVIDERS: PCP Family Medicine; Visit Provider Family Medicine
DX: R42 Dizziness and giddiness (principal); I10 Essential (primary) hypertension; R93.0 Abnormal findings on diagnostic imaging of skull and head, not elsewhere classified
CPT/HCPCS: 70551

== ENCOUNTER 2022-02-16 10:05 | Outpatient (CLI) | payer OTHER, SELFPAY ==
[2022-02-16 11:42] LABS: Alanine Aminotransferase 21 U/L (14-59); Albumin Level 3.3 g/dL (3.4-5.0); Alkaline Phosphatase 80 U/L (46-116); Anion Gap 8 mmol/L (8-16); Aspartate Amino Transferase 19 U/L (15-37); Bilirubin,Total 0.5 mg/dL (0.00-1.00); Blood Urea Nitrogen 8 mg/dL (7-18); Calcium 9.1 mg/dL (8.5-10.1); Carbon Dioxide 29 mmol/L (21-32); Chloride 101 mmol/L (98-108); Estimated Glomerular Filt Rate > 60; Glucose 99 mg/dL (70-99); Osmolality Calculated 284 mOsm/kg (285-295); Potassium 4.5 mmol/L (3.5-5.1); Sodium 138 mmol/L (136-145); Total Protein 6.6 g/dL (6.4-8.2)
[2022-02-21 20:23] LABS: Hepatitis A Antibody IgM Nonreactive; Hepatitis B Core Antibody Nonreactive (Nonreactive); Hepatitis B Surface Antigen Nonreactive (Nonreactive); Hepatitis C Signal to Cutoff 0.05 ratio (<1.00); Hepatitis C Virus Antibody Nonreactive (Nonreactive)
== END 2022-02-16 10:06 | disposition home or self-care (01) ==
LOC: CHSLAB 10:06
PROVIDERS: PCP Family Medicine; Visit Provider Family Medicine
DX: R74.8 Abnormal levels of other serum enzymes (principal)
CPT/HCPCS: 36415; 80053; 80074

== ENCOUNTER 2022-03-27 13:39 | Outpatient (CLI) | payer OTHER, SELFPAY ==
--- NOTE | 2022-03-27 13:44 | ECHO_ITS ---
Patient Info Name: Dayana Portillo Age: 46 years : 1975 Gender: Female Ht: 68 in Wt: 165 lbs BSA: 1.90 m2 HR: 75 bpm BP: 198 / 101 mmHg Technical Quality: Good Exam Date: 03/27/2022 2:38 PM Exam Location: [facility] Patient Status: Outpatient Admit Date: 03/27/2022 Staff Ordering Physician: Kodi Cortez DO General Road Supervisor: João Lagunas RDCS, RT Attending Provider: Kodi Cortez DO Referring Physician: Dana SAAVEDRA; Exam Type: CA echo doppler color flow Study Info Indications I10 - Essential (primary) hypertension Complete two-dimensional, color flow and Doppler transthoracic echocardiogram is performed. Strain analysis performed. Summary 1. Complete two-dimensional, color flow and Doppler transthoracic echocardiogram is performed. 2. Left ventricular chamber dimension is normal. 3. Left ventricular systolic function is normal, estimated at 60-65%. 4. There is moderately increased left ventricular wall thickness. 5. The left ventricular diastolic function is grade I diastolic dysfunction. 6. E/e' 10 is mildly elevated. 7. Global longitudinal strain is abnormal at -16.3%. 8. There is moderate aortic valve sclerosis. 9. There is mild aortic valve stenosis with a peak velocity of 156 cm/s, mean gradient of 4 mmHg, and aortic valve area of 1.5 cm2. 10. The mitral valve has mildly calcified annulus. Left Ventricle E/e' 10 is mildly elevated. Global longitudinal strain is abnormal at -16.3%. Left ventricular chamber dimension is normal. Left ventricular systolic function is normal, estimated at 60-65%. There is moderately increased left ventricular wall thickness. The left ventricular diastolic function is grade I diastolic dysfunction. Right Ventricle Right ventricular chamber dimension is normal. Right ventricular systolic function is normal. Left Atria Left atrial chamber dimension is normal. Right Atria Right atrial chamber dimension is normal. Aortic Valve The aortic valve is trileaflet. There is moderate aortic valve sclerosis. There is mild aortic valve stenosis with a peak velocity of 156 cm/s, mean gradient of 4 mmHg, and aortic valve area of 1.5 cm2. There is no aortic valve regurgitation. Pulmonic Valve There is no pulmonic regurgitation. Mitral Valve The mitral valve has mildly calcified annulus. There is no mitral valve stenosis. There is no mitral valve regurgitation. Tricuspid Valve There is no tricuspid valve regurgitation. Pericardium/Pleural There is no pericardial effusion. Inferior Vena Cava Normal inferior vena cava with >50% collapse upon inspiration consistent with normal right atrial pressure, 5 mmHg. Aorta The aortic root size at the sinus of Valsalva is normal. Left Ventricular Outflow Tract Name Value Normal LVOT 2D LVOT Diameter 2.0 cm LVOT Doppler LVOT Peak Velocity 98 cm/s LVOT Peak Gradient 2 mmHg LVOT Mean Gradient 1 mmHg LVOT VTI 15 cm LVOT VTI/AV VTI Ratio 0.5 L
== END 2022-03-27 13:40 | disposition home or self-care (01) ==
LOC: CHSIMG 13:40
PROVIDERS: PCP Family Medicine; Visit Provider Family Medicine
DX: I10 Essential (primary) hypertension (principal); I08.0 Rheumatic disorders of both mitral and aortic valves
CPT/HCPCS: 93306

== ENCOUNTER 2022-05-03 12:20 | Outpatient (CLI) | payer OTHER, SELFPAY ==
--- NOTE | 2022-05-03 12:32 | ECG_ITS ---
Measurements Intervals [place] Rate: 67 P: 50 [place]: 129 QRS: 53 QRSD: 87 T: 145 QT: 416 QTc: 440 Interpretive Statements SINUS RHYTHM POSSIBLE LEFT ATRIAL ENLARGEMENT [-0.1mV P-WAVE IN V1/V2] ST DEVIATION AND MODERATE T-WAVE ABNORMALITY, CONSIDER LATERAL ISCHEMIA [-0.1+ mV T- WAVE IN I/aVL/V5/V6] THE LATERAL ST T-WAVE CHANGES ARE MORE PRONOUNCED Electronically Signed On 05-03-2022 19:55:31 COLOR ROOM ATTENDANT by Tomasa Nair M.D.
[2022-05-03 12:36] LABS: Hematocrit 44.2 % (35.0-49.0); Hemoglobin 14.4 g/dL (12.0-15.0); Mean Corpuscular HGB Conc 32.6 g/dL (32.0-36.0); Mean Corpuscular Hemoglobin 28.6 pg (27.0-31.0); Mean Corpuscular Volume 87.9 fL (78.0-102.0); Platelet Count Result 262 K/mm3 (150-420); Red Blood Count 5.03 M/mm3 (4.20-5.40); Red Cell Distribution Width 12.8 % (11.6-14.4); White Blood Count 8.6 K/mm3 (4.8-10.8)
[2022-05-03 13:25] LABS: Alanine Aminotransferase 22 U/L (14-59); Albumin Level 3.7 g/dL (3.4-5.0); Alkaline Phosphatase 94 U/L (46-116); Anion Gap 6 mmol/L (8-16); Aspartate Amino Transferase 21 U/L (15-37); Bilirubin,Total 0.4 mg/dL (0.00-1.00); Blood Urea Nitrogen 14 mg/dL (7-18); Calcium 9.3 mg/dL (8.5-10.1); Carbon Dioxide 30 mmol/L (21-32); Chloride 101 mmol/L (98-108); Estimated Glomerular Filt Rate > 60; Glucose 87 mg/dL (70-99); Osmolality Calculated 283 mOsm/kg (285-295); Potassium 4.4 mmol/L (3.5-5.1); Sodium 137 mmol/L (136-145); Total Protein 7.1 g/dL (6.4-8.2)
== END 2022-05-03 12:21 | disposition home or self-care (01) ==
LOC: CHSCARD 12:22
PROVIDERS: PCP Family Medicine; Visit Provider Family Medicine
DX: I63.9 Cerebral infarction, unspecified (principal); R94.31 Abnormal electrocardiogram [ECG] [EKG]
CPT/HCPCS: 36415; 80053; 85027; 93005

== ENCOUNTER 2023-05-14 12:13 | Outpatient (CLI) | payer OTHER, SELFPAY ==
[2023-05-14 12:25] LABS: Basophils Absolute Auto 0.04 K/mm3 (0.00-0.10); Basophils Percent Auto 0.5 % (0.0-1.0); Eosinophils Absolute Auto 0.29 K/mm3 (0.02-0.50); Eosinophils Percent Auto 3.4 % (1.0-6.0); Hematocrit 47.9 % (35.0-49.0); Immature Granulocyte Absolute 0.03 K/mm3 (0.00-0.00); Immature Granulocyte Percent A 0.3 % (0.0-0.0); Lymphocytes Absolute Auto 2.04 K/mm3 (1.10-4.50); Lymphocytes Percent Auto 23.8 % (18.0-42.0); Mean Corpuscular HGB Conc 33.4 g/dL (32.0-36.0); Mean Corpuscular Volume 86.9 fL (78.0-102.0); Mean Platelet Volume 9.4 fl (9.2-11.8); Monocytes Absolute Auto 0.78 K/mm3 (0.10-0.90); Monocytes Percent Auto 9.1 % (2.0-11.0); Neutrophils Absolute Auto 5.4 K/mm3 (1.7-7.2); Neutrophils Percent Auto 62.9 % (50.0-70.0); Platelet Count Result 240 K/mm3 (150-420); Red Blood Count 5.51 M/mm3 (4.20-5.40); Red Cell Distribution Width 12.8 % (11.6-14.4); White Blood Count 8.6 K/mm3 (4.8-10.8)
[2023-05-14 13:46] LABS: Alanine Aminotransferase 34 U/L (14-59); Alkaline Phosphatase 73 U/L (46-116); Anion Gap 6 mmol/L (8-16); Aspartate Amino Transferase 25 U/L (15-37); Bilirubin,Total 0.7 mg/dL (0.00-1.00); Blood Urea Nitrogen 17 mg/dL (7-18); Calcium 9.1 mg/dL (8.5-10.1); Carbon Dioxide 31 mmol/L (21-32); Chloride 97 mmol/L (98-108); Cholesterol 124 mg/dL (0-200); Estimated Glomerular Filt Rate > 60; Glucose 82 mg/dL (70-99); HDL Direct 48 mg/dL (40-60); LDL Cholesterol Calculated 63 mg/dL (<130); Osmolality Calculated 278 mOsm/kg (285-295); Potassium 4.8 mmol/L (3.5-5.1); Sodium 134 mmol/L (136-145); Total Protein 7.2 g/dL (6.4-8.2); Triglycerides 66 mg/dL (0-150)
[2023-05-14 13:57] LABS: Thyroid Stimulating Hormone Reflex 1.24 u/IU/mL (0.36-3.74)
== END 2023-05-14 12:14 | disposition home or self-care (01) ==
PROVIDERS: PCP Family Medicine; Visit Provider Family Medicine
DX: E03.9 Hypothyroidism, unspecified (principal); I10 Essential (primary) hypertension
CPT/HCPCS: 36415; 80053; 80061; 84443; 85025